=== PATIENT | male | born 1945 | race Caucasian/White ===

== ENCOUNTER 2016-06-28 13:42 | Observation (INO) | payer MEDICARE ==
[~2016-06-28] VITALS: Ht 180.3 cm; Wt 85.0 kg
[~2016-06-28 13:42] MED LIST: AMLO5TAB22 PO; BACT PO; LEVO50TA4 PO; LISI-366 PO; METF500 PO; RANI300T PO; SIMV20 PO; TAMS0.4C67 PO
[2016-06-28 14:18] VITALS: BP 130/87; PULSE 72; RESP 14; TEMP 98; O2SAT 95
[2016-06-28] MEDS ORDERED: SODIUM CHLOR 0.9% 1000 ML INJ 1,000 ML IV ONE (14:23)
[2016-06-28] MEDS ORDERED: SODIUM CHLORIDE 0.9% FLUSH 10 ML FLUSH IVF PRN (14:30)
[2016-06-28] MEDS ORDERED: SIMV20TA PO (14:35)
[2016-06-28] MEDS ORDERED: AMLO5TAB2 PO (14:35)
[2016-06-28] MEDS ORDERED: METF500T PO (14:35)
[2016-06-28] MEDS ORDERED: LISI40TA PO (14:35)
[2016-06-28] MEDS ORDERED: RANI300T PO (14:35)
[2016-06-28] MEDS ORDERED: TAMS5CAP PO (14:35)
--- NOTE | 2016-06-28 14:35 | PD ---
HPI Chief Complaint: Syncope/Near-Syncope Time Seen by Provider: 14:15 Travel History International Travel<30 days: No Contact w/Intl Traveler<30days: No Traveled to known affect area: No History of Present Illness HPI The patient is a 70 year-old male who presents to the emergency department after syncopal episode. The patient states he lives in [place], [place]. The patient's primary physician is Dr. Ibarra, in [place], [place]. 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 The patient states he felt dizzy, lightheaded, went to sit down on a bench, and then apparently had a syncopal episode and "slid off the bench ". He denies any trauma to the head, does note a positive loss of consciousness. The patient states he was dizzy and diaphoretic prior to the syncopal episode. He denied any chest pain, shortness of breath, nausea, vomiting, or palpitations. The patient states she was recently hospitalized 2 weeks ago at [facility] and was diagnosed with new onset atrial fibrillation. The patient thinks she had an echocardiogram performed at that time and was placed on new medications, however , does not know the names of his medications. The patient states he is going to be referred to a polystyrene bead molder, but has not seen a polystyrene bead molder as of yet. The patient currently complains of no symptoms except for mild sweating, however , does feel "drained". PFSH Past Medical History Cardiovascular Problems: Yes (HTN, a-fib) Diabetes: Yes Social History Tobacco Use: No Allergies-Medications (Allergen,Severity, Reaction): Coded Allergies: Cultivated Oat Pollen (Verified Adverse Reaction, Intermediate, 06/28/16) asthma attack Reported Meds & Prescriptions Reported Meds & Active Scripts Active Reported Metoprolol Tartrate 50 Mg Tab 50 Mg PO BID Flomax (Tamsulosin HCl) 0.4 Mg Cap 0.4 Mg PO HS Amlodipine (Amlodipine Besylate) 5 Mg Tab 5 Mg PO DAILY Metformin (Metformin HCl) 500 Mg Tab 500 Mg PO DAILY With a meal Lisinopril 40 Mg Tab 40 Mg PO DAILY Ranitidine (Ranitidine HCl) 300 Mg Tab 300 Mg PO DAILY Simvastatin 20 Mg Tab 20 Mg PO DAILY Review of Systems Except as stated in HPI: all other systems reviewed are Neg General / Constitutional: No: Fever HENT: Positive: Lightheadedness Cardiovascular: Positive: Irregular Rhythm (recently diagnosed with atrial fibrillation), Diaphoresis, Syncope, No: Chest Pain or Discomfort, Palpitations Respiratory: No: Shortness of Breath Gastrointestinal: No: Nausea, Vomiting, Abdominal Pain Musculoskeletal: Positive: Weakness Neurologic: Positive: Weakness, Dizziness, Syncope, No: Headache, Change in Mentation Physical Exam Narrative GENERAL: Awake, alert, pleasant 70-year-old male who appears his stated age is in no acute respiratory distress SKIN: Focused skin assessment warm and diaphoretic. HEAD: Atraumatic. Normocephalic. EYES: Pupils equal and round. No scleral icterus. No injection or drainage. ENT: No nasal bleeding or discharge. Mucous membranes pink and moist. NECK: Trachea midline. No JVD. CARDIOVASCULAR: Regular rate and rhythm. No murmur appreciated. Heart rate in the 80s. RESPIRATORY: No accessory muscle use. Clear to auscultation. Breath sounds equal bilaterally. GASTROINTESTINAL: Abdomen soft, non-tender, nondistended. No rebound tenderness. MUSCULOSKELETAL: No obvious deformities. No clubbing. No cyanosis. No edema. NEUROLOGICAL: Awake and alert. No obvious cranial nerve deficits. Motor grossly within normal limits. Normal speech. Nonfocal. Oriented 4. PSYCHIATRIC: Appropriate mood and affect; insight and judgment normal. Data Data Last Documented VS Vital Signs Date Time Temp Pulse Resp B/P Pulse Ox O2 Delivery O2 Flow Rate FiO2 06/28/16 15:40 70 17 151/78 95 Room Air 06/28/16 14:18 98.0 Orders Electrocardiogram (06/28/16 14:23) Complete Blood Count With Diff (06/28/16 14:23) Comprehensive Metabolic Panel (06/28/16 14:23) Magnesium (Mg) (06/28/16 14:23) Ckmb (Isoenzyme) Profile (06/28/16 14:23) Troponin I (06/28/16 14:23) Act Partial Throm Time (Ptt) (06/28/16 14:23) Prothrombin Time / Inr (Pt) (06/28/16 14:23) Chest, Single Ap (06/28/16 14:23) Ct Brain W/O Iv Contrast(Rout) (06/28/16 14:23) Ecg Monitoring (06/28/16 14:23) Iv Access Insert/Monitor (06/28/16 14:23) Oximetry (06/28/16 14:23) Sodium Chloride 0.9% Flush (Ns Flush) (06/28/16 14:30) Sodium Chlor 0.9% 1000 Ml Inj (Ns 1000 M (06/28/16 14:23) Orthostatic Vital Signs (06/28/16 14:23) Place In Observation (06/28/16 ) Code Status (06/28/16 16:42) Vital Signs (Adult) Q4H (06/28/16 16:42) Activity Oob With Assistance (06/28/16 16:42) Grounds Cleaner / Telemetry .CONTINUOUS (06/28/16 16:42) Sodium Chloride 0.9% Flush (Ns Flush) (06/28/16 16:45) Sodium Chloride 0.9% Flush (Ns Flush) (06/28/16 21:00) Acetaminophen (Tylenol) (06/28/16 16:45) Ondansetron Inj (Zofran Inj) (06/28/16 16:45) Magnesium Hydroxide Liq (Milk Of Magnesi (06/28/16 16:45) Temazepam (Restoril) (06/28/16 16:45) Basic Metabolic Panel (Bmp) (06/29/16 06:00) Complete Blood Count With Diff (06/29/16 06:00) Electrocardiogram (06/28/16 16:42) Pt Request For Service (06/28/16 16:42) Scd Bilateral/Knee High JOSE GUADALUPE.BID (06/28/16 16:42) Naloxone Inj (Narcan Inj) (06/28/16 16:45) Holter Monitor Recording (06/28/16 ) Thyroid Stimulating Hormone (06/28/16 16:44) Free Thyroxine (T4) (06/28/16 16:44) Rapid Plasma Regin (Rpr) W Ttr (06/28/16 16:44) Vitamin B12 (06/28/16 16:44) Folate, Serum (06/28/16 16:44) Ammonia (06/28/16 16:44) Us Carotid Arteries Comp Bilat (06/28/16 ) Echo 2d Comp W/Dopp(Routine) (06/28/16 ) Diet Diabetic (06/28/16 Dinner) Admit Order (Ed Use Only) (06/28/16 16:50) Labs Laboratory Tests Test 06/28/16 14:45 White Blood Count 6.4 TH/MM3 Red Blood Count 4.27 MIL/MM3 Hemoglobin 11.8 GM/DL Hematocrit 34.5 % Mean Corpuscular Volume 81.0 FL Mean Corpuscular Hemoglobin 27.7 PG Mean Corpuscular Hemoglobin 34.2 % Concent Red Cell Distribution Width 15.0 % Platelet Count 202 TH/MM3 Mean Platelet Volume 8.5 FL Neutrophils (%) (Auto) 79.5 % Lymphocytes (%) (Auto) 13.3 % Monocytes (%) (Auto) 5.8 % Eosinophils (%) (Auto) 1.0 % Basophils (%) (Auto) 0.4 % Neutrophils # (Auto) 5.1 TH/MM3 Lymphocytes # (Auto) 0.9 TH/MM3 Monocytes # (Auto) 0.4 TH/MM3 Eosinophils # (Auto) 0.1 TH/MM3 Basophils # (Auto) 0.0 TH/MM3 CBC Comment DIFF FINAL Differential Comment Prothrombin Time 11.1 SEC Prothromb Time International 1.0 RATIO Ratio Activated Partial 23.1 SEC Thromboplast Time Sodium Level 142 MEQ/L Potassium Level 4.0 MEQ/L Chloride Level 109 MEQ/L Carbon Dioxide Level 24.8 MEQ/L Anion Gap 8 MEQ/L Blood Urea Nitrogen 14 MG/DL Creatinine 1.07 MG/DL Estimat Glomerular Filtration 68 ML/MIN Rate Random Glucose 125 MG/DL Calcium Level 8.3 MG/DL Magnesium Level 2.2 MG/DL Total Bilirubin 0.3 MG/DL Aspartate Amino Transf 12 U/L (AST/SGOT) Alanine Aminotransferase 24 U/L (ALT/SGPT) Alkaline Phosphatase 55 U/L Total Creatine Kinase 24 U/L Troponin I LESS THAN 0.02 NG/ML Total Protein 6.3 GM/DL Albumin 3.8 GM/DL [facility] Medical Decision Making Medical Screen Exam Complete: Yes Emergency Medical Condition: Yes Medical Record Reviewed: Yes Interpretation(s) EKG reveals normal sinus rhythm with a heart rate of 66. First-degree AV block with CT interval of 224 ms. Laboratory Tests Test 06/28/16 14:45 White Blood Count 6.4 TH/MM3 Red Blood Count 4.27 MIL/MM3 Hemoglobin 11.8 GM/DL Hematocrit 34.5 % Mean Corpuscular Volume 81.0 FL Mean Corpuscular Hemoglobin 27.7 PG Mean Corpuscular Hemoglobin 34.2 % Concent Red Cell Distribution Width 15.0 % Platelet Count 202 TH/MM3 Mean Platelet Volume 8.5 FL Neutrophils (%) (Auto) 79.5 % Lymphocytes (%) (Auto) 13.3 % Monocytes (%) (Auto) 5.8 % Eosinophils (%) (Auto) 1.0 % Basophils (%) (Auto) 0.4 % Neutrophils # (Auto) 5.1 TH/MM3 Lymphocytes # (Auto) 0.9 TH/MM3 Monocytes # (Auto) 0.4 TH/MM3 Eosinophils # (Auto) 0.1 TH/MM3 Basophils # (Auto) 0.0 TH/MM3 CBC Comment DIFF FINAL Differential Comment Prothrombin Time 11.1 SEC Prothromb Time International 1.0 RATIO Ratio Activated Partial 23.1 SEC Thromboplast Time Sodium Level 142 MEQ/L Potassium Level 4.0 MEQ/L Chloride Level 109 MEQ/L Carbon Dioxide Level 24.8 MEQ/L Anion Gap 8 MEQ/L Blood Urea Nitrogen 14 MG/DL Creatinine 1.07 MG/DL Estimat Glomerular Filtration 68 ML/MIN Rate Random Glucose 125 MG/DL Calcium Level 8.3 MG/DL Magnesium Level 2.2 MG/DL Total Bilirubin 0.3 MG/DL Aspartate Amino Transf 12 U/L (AST/SGOT) Alanine Aminotransferase 24 U/L (ALT/SGPT) Alkaline Phosphatase 55 U/L Total Creatine Kinase 24 U/L Troponin I LESS THAN 0.02 NG/ML Total Protein 6.3 GM/DL Albumin 3.8 GM/DL CT of the brain is unremarkable. Differential Diagnosis Differential diagnosis includes vasovagal syncope, cardiogenic syncope, arrhythmia, aortic stenosis, carotid stenosis, intracranial hemorrhage, pulmonary embolism, electrolyte abnormality, heat exhaustion, heat stroke Narrative Course IV was established, labs are drawn and sent, and the patient was placed on cardiac telemetry monitoring and continuous pulse oximetry monitoring. EKG was ordered and interpreted. We will try to obtain records from [facility] in regards to the patient's workup including possible echocardiogram and/ or ultrasound of the carotids. Patient was administered IV fluids. Orthostatic vital signs were obtained. CT the brain was negative. Orthostatic vital signs are unremarkable. I reviewed the paperwork from [facility]. He had an EKG which revealed a rate of 156, it appeared to be possibly atrial flutter versus SVT. The patient had a syncopal episode earlier today, recent history of arrhythmia, patient needs 23 hour observation for telemetry monitoring and echocardiogram. The patient has [facility], therefore, the on-call [facility] physician was paged for admission. Physician Communication Physician Communication [facility] was paged for 23 hour observation. I discussed the patient with Dr. Pereyra who agrees with 23 hour observation. Diagnosis Primary Impression: Syncope Qualified Code: R55 - Syncope, unspecified syncope type Admitting Information Admitting Physician Requests: Observation Condition: Stable Jake Swanson MD Jun 28, 2016 14:34
[2016-06-28 14:36] VITALS: BP_SYST 117; BP_SYST 120; BP_SYST 133; BP_DIAS 61; BP_DIAS 70; BP_DIAS 72
[2016-06-28] MEDS ORDERED: METO50TA PO (14:41)
[2016-06-28 15:11] LABS: AUTOMATED NEUTROPHIL # 5.1 TH/MM3 (1.8-7.7); BASOPHIL % 0.4 % (0.0-2.0); EOSINOPHIL # 0.1 TH/MM3 (0-0.4); HEMATOCRIT 34.5 % (39.0-51.0); HEMO FLAGS DIFF FINAL; LYMPH % 13.3 % (9.0-44.0); LYMPHOCYTE # 0.9 TH/MM3 (1.0-4.8); MEAN CORPUSCULAR HEMOGLOBIN 27.7 PG (27.0-34.0); MEAN CORPUSCULAR HGB CONC 34.2 % (32.0-36.0); MONO % 5.8 % (0.0-8.0); NEUT % 79.5 % (16.0-70.0); PLATELET COUNT 202 TH/MM3 (150-450); RED BLOOD COUNT 4.27 MIL/MM3 (4.50-5.90); WHITE BLOOD COUNT 6.4 TH/MM3 (4.0-11.0)
[2016-06-28 15:33] LABS: APTT (PATIENT) 23.1 SEC (24.3-30.1); PROTHROMBIN TIME - PATIENT 11.1 SEC (9.8-11.6)
[2016-06-28 15:35] LABS: ALT (GPT) 24 U/L (12-78); ANION GAP 8 MEQ/L (5-15); AST (GOT) 12 U/L (15-37); BICARBONATE 24.8 MEQ/L (21.0-32.0); BLOOD UREA NITROGEN 14 MG/DL (7-18); CHLORIDE 109 MEQ/L (98-107); GLOMERULAR FILTRATION RATE 68 ML/MIN (>89); MAGNESIUM 2.2 MG/DL (1.5-2.5); SODIUM (NA) 142 MEQ/L (136-145)
[2016-06-28 15:39] LABS: ALKALINE PHOSPHATASE 55 U/L (45-117); TOTAL BILIRUBIN ADULT 0.3 MG/DL (0.2-1.0)
[2016-06-28 15:40] VITALS: BP 151/78; PULSE 70; RESP 17; O2SAT 95
[2016-06-28 16:02] LABS: CREATINE KINASE 24 U/L (39-308)
--- NOTE | 2016-06-28 16:20 | RADRPT ---
EXAM DATE/TIME: 06/28/2016 16:01 [facility] COMPARISON: No previous studies available for comparison. INDICATIONS : Syncope. RADIATION DOSE: 49.22 CTDIvol (mGy) MEDICAL HISTORY : Cardiovascular disease. Hypertension. Diabetes mellitus type 2. SURGICAL HISTORY : None. ENCOUNTER: Initial ACUITY: 1 day PAIN SCALE: 0/10 LOCATION: cranial TECHNIQUE: Multiple contiguous axial images were obtained of the head. Using automated exposure control and adj ustment of the mA and/or kV according to patient size, radiation dose was kept as low as reasonably a chievable to obtain optimal diagnostic quality images. FINDINGS: CEREBRUM: The ventricles are normal for age. No evidence of midline shift, mass lesion, hemorrhage or acute in farction. No extra-axial fluid collections are seen. POSTERIOR FOSSA: The cerebellum and brainstem are intact. The 4th ventricle is midline. The cerebellopontine angle i s unremarkable. EXTRACRANIAL: The visualized portion of the orbits is intact. SKULL: The calvaria is intact. No evidence of skull fracture. CONCLUSION: Negative for an acute process. Mehran Collier MD FACR on June 28, 2016 at 16:16 Board Certified Radiologist. This report was verified electronically.
[2016-06-28] MEDS ORDERED: ACETAMINOPHEN 325 MG TAB PO PRN (16:45)
[2016-06-28] MEDS ORDERED: MAGNESIUM HYDROXIDE SUSP 30 ML CUP PO PRN (16:45)
[2016-06-28] MEDS ORDERED: TEMAZEPAM 15 MG CAP PO PRN (16:45)
[2016-06-28] MEDS ORDERED: NALOXONE HCL 0.4 MG/ML AMP IV PRN (16:45)
[2016-06-28] MEDS ORDERED: SODIUM CHLORIDE 0.9% FLUSH 10 ML FLUSH IV FLUSH PRN (16:45)
[2016-06-28] MEDS ORDERED: ONDANSETRON HCL 4 MG/2 ML VIAL IVP PRN (16:45)
--- NOTE | 2016-06-28 16:46 | HHI.HP ---
HPI Service [facility] Hospitalists Primary Care Physician Ge Ibarra M.D. Admission Diagnosis Chief Complaint: syncope Travel History International Travel<30 Days: No Contact w/Intl Traveler <30 Da: No Traveled to Known Affected Are: No History of Present Illness Patient was seen in the ER at [facility] approximately 1 week ago for palpitations. Patient was started on metoprolol, but not admitted. Review of EKG from his stay in the ER shows possible atrial flutter. Today while at the [employer] patient had a syncopal episode. Patient became lightheaded and sat down. Patient then slid to the floor with loss of consciousness, But no head injury. Patient denies dizziness. Patient and his chest pain or palpitations. Patient denies shortness of breath, nausea, vomiting, or diaphoresis. Patient is admitted to [facility] for further evaluation and treatment Review of Systems Constitutional: DENIES: Diaphoretic episodes, Fatigue, Fever, Weight gain, Weight loss, Chills, Dizziness, Change in appetite, Night Sweats Endocrine: DENIES: Heat/cold intolerance, Polydipsia, Polyuria, Polyphagia Eyes: DENIES: Blurred vision, Diplopia, Eye inflammation, Eye pain, Vision loss , Photosensitivity, Double Vision Ears, nose, mouth, throat: DENIES: Tinnitus, Hearing loss, Vertigo, Nasal discharge, Oral lesions, Throat pain, Hoarseness, Ear Pain, Running Nose, Epistaxis, Sinus Pain, Toothache, Odynophagia Respiratory: DENIES: Apneas, Cough, Snoring, Wheezing, Hemoptysis, Sputum production, Shortness of breath Cardiovascular: COMPLAINS OF: Palpitations, Syncope, DENIES: Chest pain, Dyspnea on Exertion, PND, Lower Extremity Edema, Orthopnea, Claudication Gastrointestinal: DENIES: Abdominal pain, Black stools, Bloody stools, BRB per rectum, Constipation, Diarrhea, GERD, Nausea, Reflux, Vomiting, Difficulty Swallowing, Anorexia, See HPI Genitourinary: DENIES: Urinary incontinence, Urgency, Hematuria, Dysuria, Nocturia Musculoskeletal: DENIES: Joint pain, Muscle aches, Stiffness, Joint Swelling, Back pain, Neck pain Integumentary: DENIES: Abnormal pigmentation, Nail changes, Pruritus, Rash Hematologic/lymphatic: DENIES: Bruising, Lymphadenopathy Immunologic/allergic: DENIES: Eczema, Urticaria Neurologic: DENIES: Abnormal gait, Headache, Localized weakness, Paresthesias, Seizures, Speech Problems, Tremor, Poor Balance Psychiatric: DENIES: Anxiety, Confusion, Mood changes, Depression, Hallucinations, Agitation, Suicidal Ideation, Homicidal Ideation, Delusions, History of Bipolar, History of Schizophrenia Past Family Social History Past Medical History 1) palpitations - Seen at the [facility] ER approximately 1 week ago and started on beta spring 2) hypertension 3) hyperlipidemia 4) hiatal hernia with GERD 5) hypothyroidism 6) tobacco use 7) agent orange exposure 8) BPH 9) diabetes, type II Past Surgical History 1) septoplasty for deviated nasal septum 2) appendectomy 3) left inguinal hernia repair 4) colonoscopy Reported Medications Reported Meds & Active Scripts Active Reported Metoprolol Tartrate 50 Mg Tab 50 Mg PO BID Flomax (Tamsulosin HCl) 0.4 Mg Cap 0.4 Mg PO HS Amlodipine (Amlodipine Besylate) 5 Mg Tab 5 Mg PO DAILY Metformin (Metformin HCl) 500 Mg Tab 500 Mg PO DAILY With a meal Lisinopril 40 Mg Tab 40 Mg PO DAILY Ranitidine (Ranitidine HCl) 300 Mg Tab 300 Mg PO DAILY Simvastatin 20 Mg Tab 20 Mg PO DAILY Allergies: Coded Allergies: Cultivated Oat Pollen (Verified Adverse Reaction, Intermediate, 06/28/16) asthma attack Family History - Father secondary to black lung - Mother living with diabetes, breast cancer - Siblings with breast cancer Social History - Retired - - 5 daughters - Patient has smoked one pack per day for many years - 2-3 beers daily - No illicit street drugs Physical Exam Vital Signs Vital Signs Date Time Temp Pulse Resp B/P Pulse Ox O2 Delivery O2 Flow Rate FiO2 06/28/16 15:40 70 17 151/78 95 Room Air 06/28/16 14:36 66 120/61 71 117/70 80 133/72 06/28/16 14:18 98.0 72 14 130/87 95 Physical Exam GENERAL: This is a well-nourished, well-developed patient, in no apparent distress. SKIN: No rashes, ecchymoses or lesions. Cool and dry. HEAD: Atraumatic. Normocephalic. No temporal or scalp tenderness. EYES: Pupils equal round and reactive. Extraocular motions intact. No scleral icterus. No injection or drainage. ENT: Nose without bleeding, purulent drainage or septal hematoma. Throat without erythema, tonsillar hypertrophy or exudate. Uvula midline. Airway patent. NECK: Trachea midline. No JVD or lymphadenopathy. Supple, nontender, no meningeal signs. CARDIOVASCULAR: Regular rate and rhythm without murmurs, gallops, or rubs. RESPIRATORY: Clear to auscultation. Breath sounds equal bilaterally. No wheezes , rales, or rhonchi. GASTROINTESTINAL: Abdomen soft, non-tender, nondistended. No hepato-splenomegaly , or palpable masses. No guarding. MUSCULOSKELETAL: Extremities without clubbing, cyanosis, or edema. No joint tenderness, effusion, or edema noted. No calf tenderness. Negative Homans sign bilaterally. NEUROLOGICAL: Awake and alert. Cranial nerves II through XII intact. Motor and sensory grossly within normal limits. Five out of 5 muscle strength in all muscle groups. Normal speech. Laboratory Laboratory Tests Test 06/28/16 14:45 White Blood Count 6.4 Red Blood Count 4.27 Hemoglobin 11.8 Hematocrit 34.5 Mean Corpuscular Volume 81.0 Mean Corpuscular Hemoglobin 27.7 Mean Corpuscular Hemoglobin 34.2 Concent Red Cell Distribution Width 15.0 Platelet Count 202 Mean Platelet Volume 8.5 Neutrophils (%) (Auto) 79.5 Lymphocytes (%) (Auto) 13.3 Monocytes (%) (Auto) 5.8 Eosinophils (%) (Auto) 1.0 Basophils (%) (Auto) 0.4 Neutrophils # (Auto) 5.1 Lymphocytes # (Auto) 0.9 Monocytes # (Auto) 0.4 Eosinophils # (Auto) 0.1 Basophils # (Auto) 0.0 CBC Comment DIFF FINAL Differential Comment Prothrombin Time 11.1 Prothromb Time International 1.0 Ratio Activated Partial 23.1 Thromboplast Time Sodium Level 142 Potassium Level 4.0 Chloride Level 109 Carbon Dioxide Level 24.8 Anion Gap 8 Blood Urea Nitrogen 14 Creatinine 1.07 Estimat Glomerular Filtration 68 Rate Random Glucose 125 Calcium Level 8.3 Magnesium Level 2.2 Total Bilirubin 0.3 Aspartate Amino Transf 12 (AST/SGOT) Alanine Aminotransferase 24 (ALT/SGPT) Alkaline Phosphatase 55 Total Creatine Kinase 24 Troponin I LESS THAN 0.02 Total Protein 6.3 Albumin 3.8 Result Diagram: 06/28/16 1445 06/28/16 1445 Imaging Last Impressions Head CT 06/28/16 1423 Signed Impressions: Service Date/Time: Tuesday, June 28, 2016 16:01 - CONCLUSION: Negative for an acute process. Mehran Collier MD FACR Septic Shock Reassessment Heart: Regular rate and rhythm Lungs: Clear Skin: Warm Peripheral Pulses: Bounding Right Radial Bounding Left Radial Bounding Right Popliteal Bounding Left Popliteal Bounding Right Dorsalis Pedis Bounding Left Dorsalis Pedis Bounding Right Posterior Tibial Bounding Left Posterior Tibial Capillary Refill: Brisk Assessment and Plan Problem List: (1) Syncope Status: Acute Plan: - Observe on telemetry - Obtain Holter monitor - Obtain bilateral carotid ultrasound - Continue beta spring for now (2) HTN (hypertension) Status: Chronic Plan: - continue metoprolol, norvasc, lisinopril (3) BPH (benign prostatic hyperplasia) Status: Chronic Plan: (4) DM2 (diabetes mellitus, type 2) Status: Chronic Plan: - metformin Problem Qualifiers (1) Syncope: Qualified Code: R55 - Syncope, unspecified syncope type (2) HTN (hypertension): Qualified Code: I10 - Essential hypertension (3) DM2 (diabetes mellitus, type 2): Qualified Code: E11.8 - Type 2 diabetes mellitus with complication, unspecified buttermilk drier operator insulin use status Serge Pereyra DO Jun 28, 2016 16:46
[2016-06-28 17:00] VITALS: BP 136/71; PULSE 65; RESP 14; O2SAT 94
--- NOTE | 2016-06-28 17:09 | RADRPT ---
EXAM DATE/TIME: 06/28/2016 16:42 [facility] COMPARISON: No previous studies available for comparison. INDICATIONS : Syncopal episode today MEDICAL HISTORY : None. SURGICAL HISTORY : None. ENCOUNTER: Initial ACUITY: 1 day PAIN SCORE: 0/10 LOCATION: Bilateral chest FINDINGS: The cardiac silhouette is enlarged in transverse diameter. The lungs are free of acute parenchymal op acity. No effusions are identified. There is prominence of the aortic knob is with calcification rosalinda acteristic of atherosclerotic vascular disease. There is eventration of the right hemidiaphragm. CONCLUSION: 1. Cardiomegaly. No acute pulmonary disease. Arias Ly MD on June 28, 2016 at 17:06 Board Certified Radiologist. This report was verified electronically.
[2016-06-28] MEDS ORDERED: ENALAPRILAT 1.25 MG/ML VIAL IV PRN (17:15)
[2016-06-28] MEDS ORDERED: cloNIDine HCL 0.2 MG TAB PO PRN (17:15)
--- NOTE | 2016-06-28 18:51 | RADRPT ---
EXAM DATE/TIME: 06/28/2016 17:18 [facility] COMPARISON: No previous studies available for comparison. INDICATIONS : Syncope. MEDICAL HISTORY : Gastroesophageal reflux disease. Chronic obstructive pulmonary disease. Hypertension. Hyperlipidemia. Afib. Diabetes. Hypothyroidism. Herniated disks in lumbar spine. Syncope. SURGICAL HISTORY : Appendectomy. Nasal surgery. Hernia repair. Vasectomy. ENCOUNTER: Initial ACUITY: 1 day PAIN SCORE: 0/10 LOCATION: Bilateral neck PEAK SYSTOLIC VELOCITIES (cm/sec): ICA/CCA RATIO: Right: 1.5 Left: 2.0 ICA: Right: 105 Left: 124 CCA: Right: 70 Left: 63 ECA: Right: 132 Left: 113 VERTEBRAL: Right: 45 antegrade Left: 58 antegrade Elevated flow velocities and ICA/CCA ratios have been found to correlate with increased degrees of vessel stenosis, calculated as percentage of diameter relative to a normal segment of distal ICA/CCA FINDINGS: RIGHT CAROTID: Mild plaque is seen at the carotid bulb region. No significant stenosis is visualized. The waveforms are within normal limits. LEFT CAROTID: Mild plaque is seen at the carotid bulb region. No significant stenosis is visualized. The waveforms are within normal limits. VERTEBRAL ARTERIES: Antegrade flow is seen in both vertebral arteries. MISCELLANEOUS: None. CONCLUSION: Mild plaque is seen at the carotid bulb regions. The peak systolic velocities are normal. There is a mildly elevated ICA/CCA ratio on the left. Silvestre Weir MD on June 28, 2016 at 18:48 Board Certified Radiologist. This report was verified electronically.
[2016-06-28] MEDS ORDERED: TAMSULOSIN HCL 0.4 MG CAP PO SCH (21:00)
[2016-06-28] MEDS: METOPROLOL TARTRATE 50 MG TAB PO SCH (21:00)
[2016-06-28] MEDS: SODIUM CHLORIDE 0.9% FLUSH 10 ML FLUSH IV FLUSH SCH (21:00)
[2016-06-28] MEDS: INSULIN ASPART SUPPLEMENTAL SCALE SQ SCH (21:00)
[2016-06-28 21:09] VITALS: BP 159/73; PULSE 68; RESP 18; TEMP 97.9; O2SAT 97
[2016-06-28 21:19] VITALS: PULSE 66
[2016-06-29 00:21] VITALS: BP 178/80; PULSE 61; RESP 20; TEMP 98; O2SAT 96
[2016-06-29 04:00] VITALS: BP 132/63; PULSE 63; RESP 20; TEMP 98.1; O2SAT 97
[2016-06-29] MEDS: INSULIN ASPART SUPPLEMENTAL SCALE SQ SCH ×3 (06:12→16:00)
[2016-06-29 06:49] LABS: BICARBONATE 27.3 MEQ/L (21.0-32.0); POTASSIUM 3.9 MEQ/L (3.5-5.1)
[2016-06-29 06:56] LABS: AUTOMATED NEUTROPHIL # 3.5 TH/MM3 (1.8-7.7); BASOPHIL % 0.4 % (0.0-2.0); EOSINOPHIL # 0.1 TH/MM3 (0-0.4); EOSINOPHIL % 2.1 % (0.0-4.0); HEMATOCRIT 35.1 % (39.0-51.0); HEMO FLAGS DIFF FINAL; LYMPH % 28.6 % (9.0-44.0); LYMPHOCYTE # 1.6 TH/MM3 (1.0-4.8); MEAN CELL VOLUME 81.6 FL (80.0-100.0); MEAN CORPUSCULAR HEMOGLOBIN 27.3 PG (27.0-34.0); MEAN CORPUSCULAR HGB CONC 33.5 % (32.0-36.0); MONO % 7.2 % (0.0-8.0); NEUT % 61.7 % (16.0-70.0); PLATELET COUNT 197 TH/MM3 (150-450); RED CELL DISTRIBUTION WIDTH 15.3 % (11.6-17.2); WHITE BLOOD COUNT 5.6 TH/MM3 (4.0-11.0)
[2016-06-29 08:03] VITALS: BP 152/72; PULSE 72; RESP 18; TEMP 98.2; O2SAT 96
[2016-06-29] MEDS ORDERED: metFORMIN HCL 500 MG TAB PO SCH (09:00)
[2016-06-29] MEDS ORDERED: amLODIPine BESYLATE 5 MG TAB PO SCH (09:00)
[2016-06-29] MEDS ORDERED: FAMOTIDINE 20 MG TAB PO SCH (09:00)
[2016-06-29] MEDS ORDERED: PRAVASTATIN SOD 40 MG TAB PO SCH (09:00)
[2016-06-29] MEDS ORDERED: LISINOPRIL 20 MG TAB PO SCH (09:00)
[2016-06-29] MEDS: METOPROLOL TARTRATE 50 MG TAB PO SCH (10:39)
[2016-06-29] MEDS: SODIUM CHLORIDE 0.9% FLUSH 10 ML FLUSH IV FLUSH SCH (10:39)
[2016-06-29 12:23] VITALS: BP 160/70; PULSE 60; RESP 18; TEMP 97.8; O2SAT 95
[2016-06-29 16:42] VITALS: BP 140/73; PULSE 65; RESP 18; O2SAT 95
--- NOTE | 2016-06-29 17:08 | HHI.PR ---
Subjective Remarks No further syncope. Pt ambulated with PT without difficulties. Pt has been ambulating to the BR. Objective Vitals Vital Signs Date Time Temp Pulse Resp B/P Pulse Ox O2 Delivery O2 Flow Rate FiO2 06/29/16 16:42 65 18 140/73 95 06/29/16 12:23 97.8 60 18 160/70 95 06/29/16 08:03 98.2 72 18 152/72 96 06/29/16 04:00 98.1 63 20 132/63 97 06/29/16 00:21 98.0 61 20 178/80 96 06/28/16 21:19 66 06/28/16 21:09 97.9 68 18 159/73 97 Result Diagram: 06/29/16 0510 06/29/16 0510 Imaging Last Impressions Head CT 06/28/16 1423 Signed Impressions: Service Date/Time: Tuesday, June 28, 2016 16:01 - CONCLUSION: Negative for an acute process. Mehran Collier MD FACR Objective Remarks GENERAL: This is a well-nourished, well-developed patient, in no apparent distress. CARDIOVASCULAR: Regular rate and rhythm without murmurs, gallops, or rubs. RESPIRATORY: Clear to auscultation. Breath sounds equal bilaterally. No wheezes , rales, or rhonchi. GASTROINTESTINAL: Abdomen soft, non-tender, nondistended. Normal active bowel sounds MUSCULOSKELETAL: Extremities without clubbing, cyanosis, or edema. NEURO: Alert & Oriented x4 to person, place, time, situation. Moves all ext x4 A/P Problem List: (1) Syncope Status: Acute Plan: - telemetry --> NSR - Holter monitor --> may complete at home & return device to [place] - bilateral carotid ultrasound (06/28/16) --> NO hemodynamically significant stenosis - b12, folate, TSH --> WNL - Continue metoprolol - NO driving until f/u with Cardiology - Pt has appointment to see Dr. House, Cardiology, 07/04/16 (2) HTN (hypertension) Status: Chronic Plan: - continue metoprolol, norvasc, lisinopril (3) BPH (benign prostatic hyperplasia) Status: Chronic Plan: (4) DM2 (diabetes mellitus, type 2) Status: Chronic Plan: - metformin Problem Qualifiers (1) Syncope: Qualified Code: R55 - Syncope, unspecified syncope type (2) HTN (hypertension): Qualified Code: I10 - Essential hypertension Serge Pereyra DO Jun 29, 2016 17:08
[2016-06-29 17:37] VITALS: PULSE 58
--- NOTE | 2016-06-29 19:19 | EKG ---
Date Performed: 06/28/2016 Time Performed: 18:52:20 PTAGE: 70 years EKG: Sinus rhythm WITH FIRST DEGREE AV BLOCK POSSIBLE RIGHT VENTRICULAR CONDUCTION DELAY ABNORMAL ECG PREVIOUS TRACING : 06/28/2016 14.29 Compared to prior tracing no significant change DOCTOR: Pritesh Willis Interpretating Date/Time 06/29/2016 19:17:33
--- NOTE | 2016-06-29 19:27 | EKG ---
Date Performed: 06/28/2016 Time Performed: 14:29:58 PTAGE: 70 years EKG: Sinus rhythm WITH FIRST DEGREE AV BLOCK ABNORMAL ECG PREVIOUS TRACING : 08/18/2003 15.31 Compared to prior tracing no significant change DOCTOR: Pritesh Willis Interpretating Date/Time 06/29/2016 19:25:59
--- NOTE | 2016-06-29 20:01 | EC ---
Study Study Date:06/29/2016 STUDY CONCLUSIONS SUMMARY - Left ventricle: The cavity size was normal. Wall thickness was normal. Systolic function was normal. The estimated ejection fraction was in the range of 55% to 60%. Wall motion was normal; there were no regional wall motion abnormalities. - Mitral valve: Mild regurgitation. - Tricuspid valve: Mild regurgitation. - Pulmonary arteries: PA peak pressure: 35mm Hg (S). If LV function is below 40, please consider prescribing an ACEI or ARB or document rationale for non-use. PROCEDURE DATA STUDY STATUS: Elective. Procedure: Transthoracic echocardiography. Image quality was good. Scanning was performed from the parasternal, apical, and subcostal acoustic windows. Study completion: The patient tolerated the procedure well. Transthoracic echocardiography. M-mode, complete 2D, complete spectral Doppler, and color Doppler. Patient status: Inpatient. CARDIAC ANATOMY LEFT VENTRICLE: The cavity size was normal. Wall thickness was normal. Systolic function was normal. The estimated ejection fraction was in the range of 55% to 60%. Wall motion was normal; there were no regional wall motion abnormalities. AORTIC VALVE: Trileaflet; normal thickness leaflets. Doppler: Transvalvular velocity was within the normal range. There was no stenosis. No regurgitation. AORTA: Aortic root: The aortic root was normal in size. MITRAL VALVE: Structurally normal valve. Doppler: Transvalvular velocity was within the normal range. There was no evidence for stenosis. Mild regurgitation. LEFT ATRIUM: The atrium was normal in size. RIGHT VENTRICLE: The cavity size was normal. Wall thickness was normal. PULMONIC VALVE: Doppler: Transvalvular velocity was within the normal range. There was no evidence for stenosis. No regurgitation. TRICUSPID VALVE: Structurally normal valve. Doppler: Transvalvular velocity was within the normal range. Mild regurgitation. PULMONARY ARTERY: The main pulmonary artery was normal-sized. Systolic pressure was within the normal range. RIGHT ATRIUM: The atrium was normal in size. PERICARDIUM: There was no pericardial effusion. SYSTEMIC VEINS: Inferior vena cava: The vessel was normal in size. BASIC MEASUREMENTS ADULT NORMAL Left ventricle LV internal dimension, ED, chordal level, 45.6 mm 43-52 PLAX LV internal dimension, ES, chordal level, 34.5 mm 23-38 PLAX Fractional shortening, chordal level, PLAX *24 % >29 LV posterior wall thickness, ED 12.9 mm IVS/LVPW ratio, ED 1.27 <1.3 Ventricular septum Septal thickness, ED 16.4 mm Aortic valve Leaflet separation 25 mm 15-26 Right ventricle RV internal dimension, ED, PLAX 31.4 mm 19-38 BASIC MEASUREMENTS ADULT NORMAL Aortic valve Leaflet separation 25 mm 15-26 Aorta Root diameter, ED *46 mm 20-37 Left atrium Anterior-posterior dimension, ES 35 mm 19-40 LA/aortic root ratio 0.76 DOPPLER MEASUREMENTS ADULT NORMAL Main pulmonary artery Pressure, S *35 mm Hg =30 Tricuspid valve Regurgitant peak velocity 250 cm/s Peak RV-RA gradient, S 25 mm Hg Maximal regurgitant velocity 250 cm/s Systemic veins Estimated CVP 10 mm Hg Right ventricle RV pressure, S *35 mm Hg <30 LEGEND: Mean values are shown as u=mean value. Asterisk (*) lorenzo values outside specified normal range. Prepared and signed by Jimmie Castillo [id number]
[2016-07-01 09:30] LABS: RAPID PLASMA REAGIN SCREEN NON-REACTIVE (NON-REACTVE)
--- NOTE | 2016-07-04 17:47 | HM ---
Date Performed: 06/28/2016 Time Performed: 20:06:00 HOOKUP DATE: 06/28/16 08:06:00 PM Fri ANALYSIS START TIME: 06/28/2016 8:11:00 PM ANALYSIS END TIME: 06/29/2016 8:14:59 PM PATIENT AGE: 70 PATIENT HEIGHT PATIENT WEIGHT DRUG LIST PATIENT DIAGNOSIS TEST NARRATIVE: The patient's average heart rate was 67 BPM. No episodes of tachycardia wer e noted. No episodes of bradycardia were noted. No pauses exceeding 2.0 seconds were noted. 2 ventricular ectopics, which represented < 1% of the total beat count, were noted. The highest vent ricular ectopic frequency occurred from 07:00 AM to 08:00 AM Sat. During this time 1 VE(s) occurred. Ventricular ectopics were observed as 2 isolated beat(s) only. No couplets or runs were noted. 1 supraventricular ectopics, which represented < 1% of the total beat count, were noted. The highes t supraventricular ectopic frequency occurred from 08:00 PM to 09:00 PM Fri. During this time 1 SVE( s) occurred. No episodes of ST depression (defined as -1.0 mm or more) were noted in channel 1. No episodes of ST depression (defined as -1.0 mm or more) were noted in channel 2. No episodes of ST depression (defined as -1.0 mm or more) were noted in channel 3. TEST INTERPRETATION: No symptoms recorded in patient notebook. Conclusion is normal holter monit or. Signed by : Arias Proctor
== END 2016-06-29 17:55 | disposition home or self-care (01) ==
LOC: NEPC 13:42 → NEDA 16:53 → NEPFCDU 20:03
PROVIDERS: ADMIT Hospitalist; ATTEND Hospitalist
DX: R55 Syncope and collapse (principal); I44.0 Atrioventricular block, first degree; I48.91 Unspecified atrial fibrillation; I10 Essential (primary) hypertension; N40.0 Benign prostatic hyperplasia without lower urinary tract symptoms; K21.9 Gastro-esophageal reflux disease without esophagitis; K44.9 Diaphragmatic hernia without obstruction or gangrene; E11.9 Type 2 diabetes mellitus without complications; Z72.0 Tobacco use; E78.5 Hyperlipidemia, unspecified; Z79.84 Long term (current) use of oral hypoglycemic drugs; Z79.899 Other long term (current) drug therapy
CPT/HCPCS: 70450; 71010; 80048; 80053; 82140; 82550; 82607; 82746; 82948; 83735; 84439; 84443; 84484; 85025; 85610; 85730; 86592; 93005; 93225; 93226; 93306; 93880; 97161; 99285; G0378; G8987; G8988; J1815; J7030

== ENCOUNTER 2016-10-01 06:19 | Day surgery (SDC) | payer MEDICARE ==
[2016-10-01] VITALS (10 sets, daily range): BP systolic 143–159; BP diastolic 72–88; PULSE 76–102; RESP 16; TEMP 97.8–98.2; O2SAT 94–97
[~2016-10-01] VITALS: Ht 175.3 cm; Wt 79.0 kg
[~2016-10-01 06:19] MED LIST changes: +AMLO5TAB2 PO; -AMLO5TAB22 PO; -BACT PO; -LEVO50TA4 PO; -LISI-366 PO; +LISI40TA PO; -METF500 PO; +METF500T PO; +METO50TA PO; -SIMV20 PO; +SIMV20TA PO; -TAMS0.4C67 PO; +TAMS5CAP PO
[2016-10-01] MEDS ORDERED: PRED1 PO (06:52)
[2016-10-01] MEDS ORDERED: LEVO75TA3 PO (06:52)
[2016-10-01] MEDS ORDERED: INSULIN HUMAN REGULAR 1,000 UNITS/10 ML VIAL SQ PRN (07:00)
[2016-10-01] MEDS ORDERED: LORazepam 1 MG TAB SL SCH (07:00)
[2016-10-01] MEDS ORDERED: POVIDONE IODINE 5% (ANTISEPSIS KIT) 4 APPLICATIONS EACH NARE PRN (07:00)
[2016-10-01] MEDS ORDERED: METOPROLOL TARTRATE 25 MG TAB PO PRN (07:00)
[2016-10-01] MEDS ORDERED: SODIUM CHLORID 0.9% 500 ML IV PRN (07:00)
[2016-10-01] MEDS ORDERED: SODIUM CHLORID 0.9% 500 ML INJ 500 ML IV SCH (07:00)
[2016-10-01] MEDS ORDERED: CHLORHEXIDINE GLUCONATE 2 % 1 PACK (2 CLOTHS) TOPICAL PRN (07:00)
[2016-10-01] MEDS ORDERED: LACTATED RINGER'S 1000 ML IV PRN (07:00)
[2016-10-01 07:23] LABS: AUTOMATED NEUTROPHIL # 3.8 TH/MM3 (1.8-7.7); BASOPHIL % 0.6 % (0.0-2.0); EOSINOPHIL # 0.1 TH/MM3 (0-0.4); HEMATOCRIT 35.9 % (39.0-51.0); HEMO FLAGS DIFF FINAL; LYMPHOCYTE # 1.9 TH/MM3 (1.0-4.8); MEAN CELL VOLUME 82.5 FL (80.0-100.0); MEAN CORPUSCULAR HEMOGLOBIN 28.7 PG (27.0-34.0); MEAN CORPUSCULAR HGB CONC 34.8 % (32.0-36.0); MONO % 5.4 % (0.0-8.0); PLATELET COUNT 267 TH/MM3 (150-450); RED BLOOD COUNT 4.35 MIL/MM3 (4.50-5.90); RED CELL DISTRIBUTION WIDTH 16.5 % (11.6-17.2); WHITE BLOOD COUNT 6.1 TH/MM3 (4.0-11.0)
[2016-10-01 07:29] LABS: APTT (PATIENT) 24.8 SEC (24.3-30.1); PROTHROMBIN TIME - PATIENT 10.7 SEC (9.8-11.6)
[2016-10-01 07:42] LABS: BICARBONATE 25.3 MEQ/L (21.0-32.0); POTASSIUM 3.4 MEQ/L (3.5-5.1)
[2016-10-01] MEDS ORDERED: MIDAZOLAM HCL 2 MG/2 ML VIAL ONE (10:07)
[2016-10-01] MEDS ORDERED: ISOPROTERENOL HCL 1 MG/5 ML AMP ONE (10:29)
--- NOTE | 2016-10-01 11:30 | CATHPROC ---
[facility]et HIS Report Study Information Study Number Admission Scheduled Start Study Start [id number] Oct 01 2016 6:19AM 10/01/2016 Oct 01 2016 10:06AM [place] [facility] Electrophysiology Study Admit Source Facility Department Other [facility] - Medical Technologist Prn Physician and Clinical Staff Initial Viola Hess Pattern Maker Nia Phan,RT(R) TECH2 Pattern Maker Marylou Carrillo RCIS TECH2 Other Anesthesia, EXECUTIVE CHEF ASSISTANT Other Sara Rubio,HAL Recorder Maggi Alexis BSRN Scrub Urban Peterson,RT(R) Procedures Performed Procedure Location (Site) Vessel Name RF Ablation Isthmus Other Equipment Time Automatic Thread Winder Description Size Mfg Part Number Used/Scraped BIOSENSE CORNEJO CATHETER, CELSIUS, 4MM, D [id number] 10:54 FR 7 Used INC. TYPE QUAD *[id number] 10:16 [employer] PACK, CCL CUSTOM * Used *[id number] 10:16 [employer] PACER GUY, LIMB * 2530 *[id number] Used [id number] 10:16 [facility] BLANKET,WARM AIR CCL * Used *[id number] 10:20 [employer] MEDICAL CATHETER, JSN, QUAD FR 5 Used *[id number] 124020 10:20 [employer] MEDICAL CATHETER, JSN, QUAD FR 5 Used *[id number] 10:20 [employer] MEDICAL CATHETER, JSN, QUAD FR 5 Used *[id number] 506136 10:20 [employer] MEDICAL CATHETER, JSN, QUAD FR 5 Used *[id number] 10:16 [employer] MEDICAL ELECTRODE KIT, RANDOLPH X SURFACE * [id number] Used [id number] 10:19 [employer] MEDICAL SHEATH, EPS, FR5 FAST CATH FR 5 Used *[id number] [id number] 10:19 [employer] MEDICAL SHEATH, EPS, FR5 FAST CATH FR 5 Used *[id number] 421927 10:19 [employer] MEDICAL SHEATH, EPS, FR5 FAST CATH FR 5 Used *[id number] 10:20 [employer] MEDICAL SHEATH, EPS, FR6 FAST CATH FR 6 [id number] Used 10:20 [facility] [employer] MEDICAL SHEATH, EPS, FR8 FAST CATH FR 8 [id number] Used [facility] PAD, ELECTROSURGICAL 10:16 * [id number] *[id number] Used SURGICAL GROUNDING (BLUE) History: Current Medications Medication Dosage/Unit Route Frequency Last Date/Time Taken Beta Lily Statins (any) History: Allergies Allergy Reaction NKDA History: Risk Factors Family History of Hypertension Dyslipidemia Previous AR Previous Heart Failure Premature CAD Yes Yes No No No Prior Valve Prior PCI Prior CABG Surgery No No No Cerebrovascular Peripheral Artery Chronic Lung On Dialysis Diabetes Diabetes Therapy Disease Disease Disease No No No No Yes Oral History: Risk Factors Selection Items Diabetes History: Symptoms/Diagnosis Selection Items Syncope History: Other Disease Selection Items HTN Labs Hgb (g/dl) Hct (%) RBC (MIL/MM3) WBC (l/cumm) Platelets (thousands) 11.60-17.00 35.00-51.00 4.00-5.90 4.00-11.00 150.00-450.00 12.5 35.9 4.3 6.1 267 Glucose (mg/dl) BUN (mg/dl) Creatinine (mg/dl) BUN:Creatinine (1:x) 74.00-106.00 7.00-18.00 0.50-1.30 10.00-20.00 138 13 0.8 16.3 Na (meq/l) K (meq/l) Cl (meq/l) CO2 (mmol/L) 136.00-145.00 3.50-5.10 98.00-107.00 21.00-32.00 142 3.4 106 25.3 INR (PTT:PT) 0.90-1.10 1 Medication Medication Total Dose (Bolus/Oral) Medication Total Dosage/Unit 1% XYLOCAINE 40 mL Medications (Bolus/Oral) Medication Time Given Dosage/Unit Administered By Reason 1% XYLOCAINE 10/01/2016 10:43:59 AM 20 mL Viola Villarreal For pain 20 mL 1% XYLOCAINE given in lab by Viola Villarreal in Left Groin via Subcutaneous. Ordered by Eitan Villarreal. Reason: For pain. 1% XYLOCAINE 10/01/2016 10:45:50 AM 20 mL Viola iVllarreal For pain 20 mL 1% XYLOCAINE given in lab by Viola Villarreal in Right Groin via Subcutaneous. Ordered by Jasper Villarreal. Reason: For pain. Medication (Drip) Medication Time Given Dosage/Unit Concentration/Unit Diluent (ml) Solution ISUPREL 10/01/2016 11:07:10 AM 4 mcg/min 1 mg 250 NaCl .9 4 mcg/min ISUPREL given in lab by Anesthesia, EXECUTIVE CHEF ASSISTANT via Peripheral IV. Pump/Drip Flow = 60 ml/hr using NaCl .9 with a concentration of 1 mg in 250 ml. Ordered by Viola Villarreal. IV Solutions 10/01/2016 10:18:03 AM 0 mL (IV) NaCl .9 IV Solutions given in lab by Anesthesia, EXECUTIVE CHEF ASSISTANT in Right Antecubital via Peripheral IV. Pump/Drip Flow = 50 ml/hr using NaCl .9. Ordered by Viola Villarreal. Reason: As per physicians verbal order. IV Solutions 10/01/2016 10:18:37 AM 0 mL (IV) NaCl .9 IV Solutions given in lab by Anesthesia, EXECUTIVE CHEF ASSISTANT in Left Antecubital via Peripheral IV. Pump/Drip Flow = 50 ml/hr using NaCl .9. Ordered by Viola Villarreal. Initial Case Assessment Cardiovascular HR NIBP 70 178/90 Edema Present Skin color Skin None Normal Warm Dry Neurological State Oriented to time-place- Alert Moves all extremities person Respiration - General Respiration Rate SpO2 (%) (B/min) 18 97 Final Case Assessment Cardiovascular HR Rhythm NIBP Chest Pain 77 SR 104/56 0 Edema Present Skin color Skin None Normal Warm Dry Circulatory - Right Pulses Dorsalis Pedis 1 Scale (0,1,2,3,4,d) Circulatory - Left Pulses Dorsalis Pedis 1 Scale (0,1,2,3,4,d) Neurological State Oriented to time-place- Alert Moves all extremities person Respiration - General Respiration Rate SpO2 (%) O2 (lpm) (B/min) 18 97 2 Chronological Log Time Study Chronological Log 10:07:00 Patient arrived via Bed. 10:10:25 Patient Name, D.O.B, / Armband Verified By R.N. 10:10:27 Consent signed by the physician and the patient and verified by the Medical Technologist Prn staff. 10:10:36 Pre-op and post- op instructions given; patient acknowledges understanding of instructions. 10:10:45 Anesthesia at bedside. Assumes care of patient. Gabriel RAMIREZ 10:10:53 Patient has been NPO for More than 6Hrs. 10:10:56 Skin Breakdown- none 10:16:27 Patient Warmer Placed on the Table. 10:16:32 Disposable Defibrillator Pads Placed On Patient. 10:16:38 Naresh Prominences Protected 10:16:43 A # 20 IV was noted in the Antecubital (left). Grade = ~GRADE~ 10:16:55 A # 20 IV was noted in the Antecubital (right). Grade = ~GRADE~ Assessment: Initial Case, HR=70 BPM, OCGY=596/90 mmhg, Edema=None, Color=Normal, Skin = Warm, D ry 10:17:07 Neurological: State=Alert, Ox3, MOHR Respiration: Resp=18 B/min, SpO2=97 % 10:17:54 Table restraints applied according to hospital policy IV Solutions given in lab by Anesthesia, EXECUTIVE CHEF ASSISTANT in Right Antecubital via Peripheral IV. Pump/Drip Flow = 50 ml/hr using 10:18:03 NaCl .9. Ordered by Viola Villarreal. Reason: As per physicians verbal order. IV Solutions given in lab by Anesthesia, EXECUTIVE CHEF ASSISTANT in Left Antecubital via Peripheral IV. Pump/Drip Flow = 50 ml/hr using 10:18:37 NaCl .9. Ordered by Viola Villarreal. 10:20:15 Right groin prepped with 2% chlorhexidine, and with a 3 min. waiting time. 10:20:19 Left groin prepped with 2% chlorhexidine, and with a 3 min. waiting time. 10:28:31 Reference ECG taken 10:30:15 MD paged 10:30:18 MD responded. 10:31:06 Verbal Stimulation=2 Physical Stimulation=2 Airway=2 Respiration=2 TOTAL=10. (0=absent, 1=l imited, 2=present) 10:39:19 MD arrived. 10:43:17 Immediate Presedation assesment performed by physician. Time Out. Correct patient, procedure, procedure equipment, site and side verified with physicia n present. Time 10:43:20 concurred by MD, individual staff and EXECUTIVE CHEF ASSISTANT. Time Out #2 - Consents verified, patient in correct position, all results are labled and displa yed, safety precautions 10:43:31 taken, antibiotics administered. Time out concurred by MD, individual staff and EXECUTIVE CHEF ASSISTANT in procedu re 10:43:33 Case Start 20 mL 1% XYLOCAINE given in lab by Viola Villarreal in Left Groin via Subcutaneous. Ordered by Viola Colvin. 10:43:59 Reason: For pain. 10:44:26 Vascular access was obtained in the Fem Vein (left). 10:44:32 Vascular access was obtained in the Fem Vein (left). 10:44:33 Vascular access was obtained in the Fem Vein (left). 10:44:45 A SHEATH, EPS, FR5 FAST CATH FR 5 was advanced into the Antecubital (left) using the Percut aneous technique. 10:44:59 A SHEATH, EPS, FR5 FAST CATH FR 5 was advanced into the Antecubital (left) using the Percut aneous technique. 10:45:00 A SHEATH, EPS, FR5 FAST CATH FR 5 was advanced into the Antecubital (left) using the Percut aneous technique. 20 mL 1% XYLOCAINE given in lab by Viola Villarreal in Right Groin via Subcutaneous. Ordered by Viola Bentley. 10:45:50 Reason: For pain. 10:46:04 Vascular access was obtained in the Fem Vein (right). 10:46:10 Vascular access was obtained in the Fem Vein (right). 10:46:12 A SHEATH, EPS, FR6 FAST CATH FR 6 was advanced into the Fem Vein (right) using the Percutan eous technique. 10:46:19 A SHEATH, EPS, FR8 FAST CATH FR 8 was advanced into the Fem Vein (right) using the Percutan eous technique. A CATHETER, JSN, QUAD FR 5 was advanced vis Fem Vein (left) and placed in the HIS. Placement wa s visually 10:47:19 confirmed under fluoroscopy. A CATHETER, JSN, QUAD FR 5 was advanced vis Fem Vein (left) and placed in the HRA. Placement wa s visually 10:47:43 confirmed under fluoroscopy. A CATHETER, JSN, QUAD FR 5 was advanced vis Fem Vein (left) and placed in the RVA. Placement w as visually 10:48:01 confirmed under fluoroscopy. A CATHETER, JSN, QUAD FR 5 was advanced vis Fem Vein (right) and placed in the CS. Placement w as visually 10:48:29 confirmed under fluoroscopy. 10:51:12 EP study in progress. A CATHETER, CELSIUS, 4MM, D TYPE QUAD FR 7 was advanced vis Fem Vein (right) and placed in the Isthmus. 10:54:34 Placement was visually confirmed under fluoroscopy. 10:54:50 RF Ablation of the Isthmus with a CATHETER, DEVEN, 4MM, D TYPE QUAD FR 7. 10:55:28 Ablation in progress. 11:04:36 EP study in progress 4 mcg/min ISUPREL given in lab by Anesthesia, EXECUTIVE CHEF ASSISTANT via Peripheral IV. Pump/Drip Flow = 60 ml/h r using NaCl .9 with 11:07:10 a concentration of 1 mg in 250 ml. Ordered by Viola Villarreal. 11:12:40 D/C ISUPREL 11:24:39 Catheter(s) removed without difficulty 11:24:51 Case End 11:27:44 Sterile dressing applied to site 11:27:45 No case complications noted. 11:27:47 Sheath(s) left in place, will be removed in Holding Area 11:27:49 Cine recording checked. 11:27:50 Bedside Report will be given. 11:27:53 CIC called. Spoke to JULEE 11:28:03 Defibrillator and ground pads removed. Skin intact. 11:28:04 [facility]: Final Case, HR=77 BPM, Rhythm=SR, XMQT=297/56 mmhg, Chest Pain=0, Edema=None, [place] r=Normal, Skin = Warm, Dry Right Pulses: Breezy Ped=1 11:29:09 Left Pulses: Breezy Ped=1 Neurological: State=Alert, Ox3, MOHR Respiration: Resp=18 B/min, SpO2=97 %, O2=2 lpm End Study - Contrast Media Used In Study Contrast Total Opened (mL) Total Used (mL) Total Wasted (mL) Unspecified 0 0 0 End Study - Maximum Contrast Load Max Contrast Load (mL) 507.4 End Study - Radiation Exposure Fluoro Time (minutes) 3.3 End Study - Patient Disposition Complications Transferred To Interventional Outcome No Telemetry Bed successful
[2016-10-01] MEDS ORDERED: LORazepam 2 MG/ML VIAL IV PRN (11:45)
[2016-10-01] MEDS ORDERED: METOCLOPRAMIDE HCL 10 MG/2 ML VIAL IV PRN (11:45)
[2016-10-01] MEDS ORDERED: SODIUM CHLOR 0.9% 250 ML INJ 250 ML IV PRN (11:45)
[2016-10-01] MEDS ORDERED: LIDOCAINE HCL 1% 50 ML VIAL INFIL PRN (11:45)
[2016-10-01] MEDS ORDERED: ATROPINE SULFATE 1 MG/ML VIAL IV PRN (11:45)
--- NOTE | 2016-10-01 13:00 | MA ---
cc: VANNA PAT M.D. DATE: 10/01/2016 TYPE OF PROCEDURES: Electrophysiology study, CS cannulation, 3-D mapping radiofrequency ablation of AV marley reentrant tachycardia, repeat echo physiology study on Isuprel infusion. PROCEDURE: Mr. Delacruz 71-year-old gentleman supraventricular tachyarrhythmia. Multiple hospitalization, referred for electrophysiology study and ablation. The risks, the nature and the benefit of the procedure are clearly stated to him. The risks include pneumothorax, cardiac perforation, stroke, need for open heart surgery and even . The patient understood and agreed to proceed. PROCEDURE After written informed consent was obtained, the patient was brought to the EP lab where he was prepped and draped in the usual sterile fashion. Conscious sedation was initiated and C and maintained throughout the procedure by anesthesiologist. Once sedation verified, the right and left inguinal area was anesthetized with 2% Xylocaine. Using modified Seldinger technique, the left femoral vein was done on three occasions, three guide wires were advanced over the wire, three 5-[place] Hemaquet were advanced. Then the right femoral vein was cannulated on two occasions two guidewire were advanced over the wires, a 6 and 8-[place] Hemaquet were advanced. Then under fluoroscopic guidance through the 5-[place] Hemaquet, four, 5-[place] Sakshi curved quadripolar electrophysiology catheters were advanced on the HIS, upper right atrium, coronary sinus and right ventricular apex. Basic interval was measured all within normal limits. At this point atrial pacing protocol was performed, atrial pacing protocol consists of incremental atrial pacing as well as program stimulation with 410 cycle length and up to one excess stimuli delivered during atrial pacing protocol supraventricular tachyarrhythmia of intracardiac characteristic of AV marley reentrant tachycardia was induced. VA time was 48 and it was terminated. Then ventricular pacing protocol was performed. There was VA conduction it was concentric. VA conduction was at 650 milliseconds. Then through the 8 [place] Hemaquet, a Cordis Mckeon D curve 4 mm mapping and radiofrequency ablation catheter was advanced. Using [employer] endocardial solution mapping system a three-dimensional a three-dimensional configuration of the right atrium was obtained. Then the catheter was placed at the tricuspid valve annulus. When they begin a small trifurcate A observed radiofrequency energy was delivered. Multiple junctional beat observed. Further burn was delivered in the area. Then atrial pacing protocol was performed. Wenckebach was around 530 milliseconds. No tachyarrhythmia was induced. Previous to that the Wenckebach was reached at 410 milliseconds. Then ventricular pacing protocol was performed. There is VA conduction. No tachyarrhythmia was induced. Isuprel infusion was initiated, atrial and ventricular pacing protocol was repeated again. No tachyarrhythmia was induced post Isuprel I did induce some kind of irregular arrhythmia, possible pulmonary vein tachyarrhythmia. We will be observed for now. At that point all catheters were removed. The patient tolerated procedure. No incident report. CONCLUSION 1. Electrocardiogram at baseline the patient was in sinus postprocedure electrocardiogram was unchanged. 2. Basic interval base cycle length was 820 milliseconds AH at a 100 HV at 66 milliseconds. 3. Atrial pacing protocol Wenckebach of the node at baseline was 410 milliseconds, post ablation it was 525, at 30 milliseconds. During atrial pacing protocol tachyarrhythmia was induced. 4. Ventricular pacing protocol there was VA conduction it was concentric. No tachyarrhythmia was induced. 5. Tachyarrhythmia supraventricular tachyarrhythmia of intracardiac characteristic of AV marley reentrant tachycardia was induced, it was pace terminated. Post ablation. No tachyarrhythmia was induced. Given the Isuprel infusion and at the peak of Isuprel infusion some episode of short burst of tachyarrhythmia was irregular. Possible pulmonary vein tachyarrhythmia. CONCLUSION Suspected physiology study, mapping, radiofrequency ablation of AV marley reentrant tachycardia. COMMENT/RECOMMENDATIONS The patient going to be transferred to the telemetry unit will be observed. observed. Monitor will be requested. There is a possibility of possible pulmonary vein tachyarrhythmia. But it was very short. MD ALEXYS Torres/thomas /11:42 AM /12:56 PM
[2016-10-01] MEDS ORDERED: BACITRACIN OINT 0.9 GM PKT TOP ONE (14:00)
[2016-10-01] MEDS ORDERED: ONDANSETRON HCL 4 MG/2 ML VIAL IV PRN (14:00)
[2016-10-01] MEDS ORDERED: oxyCODONE/ACETAMINOPHEN 5 MG/325 MG TAB PO PRN ×2 (14:00)
[2016-10-01] MEDS ORDERED: PROPOFOL 200 MG/20 ML AMP IV ONE (15:08)
[2016-10-01] MEDS ORDERED: TAMSULOSIN HCL 0.4 MG CAP PO SCH (21:00)
[2016-10-01] MEDS: METOPROLOL TARTRATE 50 MG TAB PO SCH (21:21)
[2016-10-01] MEDS: FAMOTIDINE 20 MG TAB PO SCH (21:21)
[2016-10-02] VITALS (8 sets, daily range): BP systolic 122–164; BP diastolic 65–92; PULSE 71–97; RESP 16–18; TEMP 98.6; O2SAT 93–94
[2016-10-02] MEDS ORDERED: LEVOTHYROXINE SODIUM 75 MCG TAB PO SCH (06:00)
--- NOTE | 2016-10-02 07:51 | PD.CARD.PN ---
Subjective Subjective Remarks Feels okay. Objective Medications Current Medications Medications (Trade) Dose Ordered Sig/Alfonzo Route Start Time Stop Time Status Last Admin Sodium Chloride 500 ml @ 30 mls/hr [id number] IV 10/01/16 07:00 10/01/16 07:00 Lactated Ringer's 1,000 ml @ 30 mls/hr Q24H PRN IV 10/01/16 07:00 10/04/16 06:59 (NS 500 ml Inj) 500 ml @ 30 mls/hr [id number] PRN IV 10/01/16 07:00 10/04/16 06:59 (Percocet 5-325 Mg) 1 tab Q4H PRN PO 10/01/16 14:00 (Percocet 5-325 Mg) 2 tab Q4H PRN PO 10/01/16 14:00 (Ativan Inj) 0.5 mg UNSCH PRN IV 10/01/16 11:45 10/02/16 11:44 Atropine Sulfate 0.5 mg 0.5 mg UNSCH PRN IV 10/01/16 11:45 (NS 250 ml Inj) 250 ml @ 500 mls/hr ONCE PRN IV 10/01/16 11:45 10/02/16 11:44 (Reglan Inj) 10 mg Q4H PRN IV 10/01/16 11:45 UNV (Zofran Inj) 4 mg Q4H PRN IV 10/01/16 14:00 10/03/16 13:59 (Xylocaine 1% Inj (50 ml)) 10 ml UNSCH PRN INFIL 10/01/16 11:45 10/02/16 11:44 (Norvasc) 5 mg DAILY PO 10/02/16 09:00 (Synthroid) 75 mcg DAILY@06 PO 10/02/16 06:00 10/02/16 05:38 (Glucophage) 500 mg DAILY PO 10/02/16 09:00 (Lopressor) 50 mg BID PO 10/01/16 21:00 10/01/16 21:21 (Deltasone) 1 mg DAILY PO 10/02/16 09:00 (Flomax) 0.4 mg HS PO 10/01/16 21:00 10/01/16 21:21 (Prinivil) 40 mg DAILY PO 10/02/16 09:00 (Pepcid) 20 mg BID PO 10/01/16 21:00 10/01/16 21:21 (Pravachol) 40 mg DAILY PO 10/02/16 09:00 Vital Signs / I&O Vital Signs Date Time Temp Pulse Resp B/P Pulse Ox O2 Delivery O2 Flow Rate FiO2 10/02/16 06:00 81 10/02/16 05:00 77 10/02/16 04:00 76 16 161/90 93 10/02/16 04:00 75 10/02/16 03:00 81 10/02/16 02:00 81 10/02/16 01:00 81 10/02/16 00:00 71 16 122/65 94 10/02/16 00:00 78 10/01/16 23:00 80 10/01/16 22:00 82 10/01/16 21:00 86 10/01/16 20:00 98.2 91 16 159/82 94 10/01/16 20:00 91 10/01/16 19:00 98 10/01/16 18:00 102 10/01/16 17:00 100 10/01/16 16:00 88 10/01/16 15:00 86 10/01/16 15:00 97.8 82 16 143/72 95 I/O 10/01/16 10/01/16 10/01/16 10/02/16 10/02/16 10/02/16 07:00 15:00 23:00 07:00 15:00 23:00 Intake Total 600 ml 240 ml Output Total 675 ml Balance 600 ml -435 ml Intake Oral 480 ml 240 ml IV Total 120 ml Output Urine Total 675 ml # Voids 2 Physical Exam GENERAL: Well-nourished, well-developed patient. SKIN: Warm and dry. Groin sites soft without bruising or bleeding. HEAD: Normocephalic. EYES: No scleral icterus. No injection or drainage. NECK: Supple, trachea midline. No JVD or lymphadenopathy. CARDIOVASCULAR: Regular rate and rhythm without murmurs, gallops, or rubs. RESPIRATORY: Breath sounds equal bilaterally. No accessory muscle use. GASTROINTESTINAL: Abdomen soft, non-tender, nondistended. EXTREMITIES: No cyanosis, or edema. NEUROLOGICAL: Awake, alert, and oriented x 3. Non-focal. Assessment and Plan Problem List: (1) AVNRT (AV marley re-entry tachycardia) Assessment and Plan: No recurrent tachycardia overnight. Continue current medications. (2) S/P ablation of accessory bypass tract Assessment and Plan: Stable status post AVNRT ablation. Groin sites soft, benign. Discharge home, follow-up with Dr. Villarreal in 3 weeks per my discussion with him. Karla Hart Oct 02, 2016 07:51
[2016-10-02] MEDS: FAMOTIDINE 20 MG TAB PO SCH (08:56)
[2016-10-02] MEDS: METOPROLOL TARTRATE 50 MG TAB PO SCH (08:56)
[2016-10-02] MEDS ORDERED: metFORMIN HCL 500 MG TAB PO SCH (09:00)
[2016-10-02] MEDS ORDERED: PRAVASTATIN SOD 40 MG TAB PO SCH (09:00)
[2016-10-02] MEDS ORDERED: LISINOPRIL 20 MG TAB PO SCH (09:00)
[2016-10-02] MEDS ORDERED: predniSONE 1 MG TAB PO SCH (09:00)
[2016-10-02] MEDS ORDERED: amLODIPine BESYLATE 5 MG TAB PO SCH (09:00)
--- NOTE | 2016-10-02 09:04 | EKG ---
Date Performed: 10/02/2016 Time Performed: 05:34:08 PTAGE: 71 years EKG: wandering pacemaker atrial rhythm Possible inferior infarct - age undetermined Abnormal ECG PREVIOUS TRACING : 10/01/2016 12.41 DOCTOR: Steve Rider Interpretating Date/Time 10/02/2016 09:02:38
--- NOTE | 2016-10-02 11:39 | EKG ---
Date Performed: 10/01/2016 Time Performed: 12:41:04 PTAGE: 71 years EKG: Sinus rhythm . Possible inferior infarct - age undetermined Abnormal ECG PREVIOUS TRACING : 06/28/2016 18.52 DOCTOR: Steve Rider Interpretating Date/Time 10/02/2016 11:38:58
--- NOTE | 2016-10-02 11:52 | EKG ---
Date Performed: 10/01/2016 Time Performed: 07:06:02 PTAGE: 71 years EKG: Sinus rhythm with PAC(s) with borderline 1st degree A-V block. Borderline ECG NO PREVIOUS TRACING DOCTOR: Steve Rider Interpretating Date/Time 10/02/2016 11:50:48
== END 2016-10-02 09:17 | disposition home or self-care (01) ==
LOC: HDOC 06:19 → HDIC 06:20 → HCIS 11:56 → HDOC 10-02 09:17
PROVIDERS: ATTEND Internal Medicine Interventional Cardiology
DX: I47.1 Supraventricular tachycardia (principal); E11.9 Type 2 diabetes mellitus without complications; E78.5 Hyperlipidemia, unspecified; R55 Syncope and collapse; R94.31 Abnormal electrocardiogram [ECG] [EKG]; Z01.810 Encounter for preprocedural cardiovascular examination; Z01.818 Encounter for other preprocedural examination
CPT/HCPCS: 80048; 85025; 85610; 85730; 86850; 86900; 86901; 93005; 93613; 93623; 93653; C1730; C1732; C2630; J2250; J3010; J7040; J7512

== ENCOUNTER 2016-10-09 08:54 | Emergency (ER) | payer MEDICARE ==
[~2016-10-09] VITALS: Ht 180.3 cm; Wt 76.0 kg
[~2016-10-09 08:54] MED LIST changes: +LEVO75TA3 PO; +PRED1 PO
[2016-10-09 09:01] VITALS: BP 123/58; PULSE 73; RESP 17; TEMP 97.8; O2SAT 98
[2016-10-09 09:09] VITALS: RESP 17; O2SAT 98
[2016-10-09 09:10] VITALS: BP_SYST 120; BP_SYST 122; BP_DIAS 55; BP_DIAS 58; BP_DIAS 59; RESP 17
--- NOTE | 2016-10-09 09:13 | PD ---
HPI Chief Complaint: Syncope/Near-Syncope Time Seen by Provider: 09:07 Travel History International Travel<30 days: No Contact w/Intl Traveler<30days: No Traveled to known affect area: No History of Present Illness HPI 71-year-old male arrives by EMS due to a syncope episode. He was at the [facility] surgery [place] where his is going to undergo surgery when he lost consciousness and fell to the ground. He woke up right away. EMS reports on scene the blood pressure was normal although he was quite diaphoretic. The patient denies chest pain shortness of breath. He reports feeling very sleepy throughout the morning as if he needed to go to sleep. This sensation of the urge to sleep became increasingly severe especially in the 30 minutes just prior to loss of consciousness. He reports a history of SVT several times previously and underwent cardiac ablation by Dr. Villarreal several days prior. He notes he took all his medications in the morning including Lipitor, ranitidine, Norvasc, lisinopril, metformin, metoprolol and tramadol. Since starting this particular regimen he has felt increasingly fatigued. PFSH Past Medical History Atrial Fibrillation: Yes Blood Disorders: No Heart Rhythm Problems: Yes Cancer: No Cardiovascular Problems: Yes High Cholesterol: Yes Chemotherapy: No Chest Pain: No Congestive Heart Failure: No Diabetes: Yes Endocrine: Yes Genitourinary: Yes (Prostate) Herniated Disk: Yes (2 lumbar area) Hypertension: Yes Immune Disorder: No Musculoskeletal: No Neurologic: No Psychiatric: No Reproductive: No Respiratory: No Radiation Therapy: No Thyroid Disease: Yes Past Surgical History Abdominal Surgery: Yes (hernia repair) Appendectomy: Yes Body Medical Devices: Hernia mesh. Other Surgery: Yes (nasal surgery) Social History Alcohol Use: Yes ([facility] beer) Tobacco Use: Yes Substance Use: No Allergies-Medications (Allergen,Severity, Reaction): Coded Allergies: Cultivated Oat Pollen (Verified Adverse Reaction, Intermediate, 10/01/16) asthma attack Reported Meds & Prescriptions Reported Meds & Active Scripts Active Reported Prednisone 1 Mg Tab 1 Mg PO DAILY Levothyroxine (Levothyroxine Sodium) 75 Mcg Tab 75 Mcg PO DAILY Metoprolol Tartrate 50 Mg Tab 50 Mg PO BID Flomax (Tamsulosin HCl) 0.4 Mg Cap 0.4 Mg PO HS Amlodipine (Amlodipine Besylate) 5 Mg Tab 5 Mg PO DAILY Metformin (Metformin HCl) 500 Mg Tab 500 Mg PO DAILY With a meal Lisinopril 40 Mg Tab 40 Mg PO DAILY Ranitidine (Ranitidine HCl) 300 Mg Tab 300 Mg PO DAILY Simvastatin 20 Mg Tab 20 Mg PO DAILY Review of Systems Except as stated in HPI: all other systems reviewed are Neg Physical Exam Narrative GENERAL: 71-year-old male well-nourished well-developed no acute distress SKIN: Warm and dry. HEAD: Atraumatic. Normocephalic. EYES: Pupils equal and round. No scleral icterus. No injection or drainage. ENT: No nasal bleeding or discharge. Mucous membranes pink and moist. NECK: Trachea midline. No JVD. CARDIOVASCULAR: Regular rate and rhythm. RESPIRATORY: No accessory muscle use. Clear to auscultation. Breath sounds equal bilaterally. GASTROINTESTINAL: Abdomen soft, non-tender, nondistended. Hepatic and splenic margins not palpable. MUSCULOSKELETAL: Extremities without clubbing, cyanosis, or edema. No obvious deformities. NEUROLOGICAL: Awake and alert. No obvious cranial nerve deficits. Motor grossly within normal limits. Five out of 5 muscle strength in the arms and legs. Normal speech. PSYCHIATRIC: Appropriate mood and affect; insight and judgment normal. Data Data Last Documented VS Vital Signs Date Time Temp Pulse Resp B/P Pulse Ox O2 Delivery O2 Flow Rate FiO2 10/09/16 10:15 97.8 76 17 118/67 99 10/09/16 09:09 Room Air Vital signs reviewed Orders Electrocardiogram (10/09/16 09:07) Basic Metabolic Panel (Bmp) (10/09/16 09:07) Complete Blood Count With Diff (10/09/16 09:07) Magnesium (Mg) (10/09/16 09:07) Ecg Monitoring (10/09/16 09:07) Iv Access Insert/Monitor (10/09/16 09:07) Oximetry (10/09/16 09:07) Sodium Chloride 0.9% Flush (Ns Flush) (10/09/16 09:15) Orthostatic Vital Signs (10/09/16 09:07) Labs Laboratory Tests Test 10/09/16 09:10 White Blood Count 8.6 TH/MM3 Red Blood Count 4.20 MIL/MM3 Hemoglobin 12.0 GM/DL Hematocrit 34.9 % Mean Corpuscular Volume 83.0 FL Mean Corpuscular Hemoglobin 28.4 PG Mean Corpuscular Hemoglobin 34.3 % Concent Red Cell Distribution Width 16.4 % Platelet Count 255 TH/MM3 Mean Platelet Volume 7.3 FL Neutrophils (%) (Auto) 76.1 % Lymphocytes (%) (Auto) 17.0 % Monocytes (%) (Auto) 5.9 % Eosinophils (%) (Auto) 0.6 % Basophils (%) (Auto) 0.4 % Neutrophils # (Auto) 6.5 TH/MM3 Lymphocytes # (Auto) 1.5 TH/MM3 Monocytes # (Auto) 0.5 TH/MM3 Eosinophils # (Auto) 0.1 TH/MM3 Basophils # (Auto) 0.0 TH/MM3 CBC Comment DIFF FINAL Differential Comment Sodium Level 141 MEQ/L Potassium Level 3.4 MEQ/L Chloride Level 107 MEQ/L Carbon Dioxide Level 28.9 MEQ/L Anion Gap 5 MEQ/L Blood Urea Nitrogen 10 MG/DL Creatinine 0.89 MG/DL Estimat Glomerular Filtration 84 ML/MIN Rate Random Glucose 137 MG/DL Calcium Level 8.3 MG/DL Magnesium Level 2.2 MG/DL MDM Medical Decision Making Medical Screen Exam Complete: Yes Emergency Medical Condition: Yes Medical Record Reviewed: Yes Differential Diagnosis Anemia, electron imbalance, arrhythmia, renal failure, dehydration, polypharmacy Narrative Course CBC & BMP Diagram 10/09/16 09:10 EKG reveals sinus rhythm with first-degree AV block rate 73 normal axis The patient is resting comfortably and feels better, is alert and in no distress. The patients results and examination findings were discussed. The repeat examination is unremarkable and benign. The history, exam, diagnostic testing, and current condition do not suggest any significant pathology to warrant further testing, continued ED treatment, admission, or surgical evaluation at this point. The vital signs have been stable. The patient does not have uncontrollable pain, intractable vomiting, or other significant symptoms. The patient's condition is stable and appropriate for discharge. The patient will pursue further outpatient evaluation with a primary care physician or other designated or consulting physician as indicated in the discharge instructions. The patient expressed understanding and was agreeable with this plan. Diagnosis Primary Impression: Syncope Qualified Code: R55 - Syncope, unspecified syncope type Referrals: [facility] 2 days Primary Care Physician 2 days Additional Instructions: PLEASE FOLLOW UP WITH PRIMARY DOCTOR AND WITH [employer]ING [employer] TO POTENTIALLY CHANGE MEDICATIONS AND/OR CHANGE DOSING. Med/Other Pt SpecificInfo: No Change to Meds Disposition: 01 DISCHARGE HOME Condition: Giancarlo Harvey MD Oct 09, 2016 09:13
[2016-10-09] MEDS ORDERED: SODIUM CHLORIDE 0.9% FLUSH 10 ML FLUSH IVF PRN (09:15)
[2016-10-09 09:26] LABS: AUTOMATED NEUTROPHIL # 6.5 TH/MM3 (1.8-7.7); BASOPHIL % 0.4 % (0.0-2.0); EOSINOPHIL # 0.1 TH/MM3 (0-0.4); EOSINOPHIL % 0.6 % (0.0-4.0); HEMATOCRIT 34.9 % (39.0-51.0); HEMO FLAGS DIFF FINAL; LYMPHOCYTE # 1.5 TH/MM3 (1.0-4.8); MEAN CORPUSCULAR HEMOGLOBIN 28.4 PG (27.0-34.0); MEAN CORPUSCULAR HGB CONC 34.3 % (32.0-36.0); MONO % 5.9 % (0.0-8.0); NEUT % 76.1 % (16.0-70.0); PLATELET COUNT 255 TH/MM3 (150-450); RED CELL DISTRIBUTION WIDTH 16.4 % (11.6-17.2); WHITE BLOOD COUNT 8.6 TH/MM3 (4.0-11.0)
[2016-10-09 09:44] LABS: BICARBONATE 28.9 MEQ/L (21.0-32.0); MAGNESIUM 2.2 MG/DL (1.5-2.5); POTASSIUM 3.4 MEQ/L (3.5-5.1)
[2016-10-09 10:15] VITALS: BP 118/67; TEMP 97.8
--- NOTE | 2016-10-10 08:10 | EKG ---
Date Performed: 10/09/2016 Time Performed: 09:05:21 PTAGE: 71 years EKG: Sinus rhythm WITH FIRST DEGREE AV BLOCK POSSIBLE RIGHT VENTRICULAR CONDUCTION DELAY ABNORMAL ECG NO PREVIOUS TRACING DOCTOR: Jimmie Castillo Interpretating Date/Time 10/10/2016 08:05:35
[2016-11-13] MEDS ORDERED: TRAM50TA PO (13:47)
[2016-11-13] MEDS ORDERED: AMIO200T PO (13:47)
[2016-11-13] MEDS ORDERED: PRED10 PO (13:48)
[2016-11-13] MEDS ORDERED: AUGM875T3 PO (13:48)
[2016-11-13] MEDS ORDERED: TAMS5CAP PO (14:22)
== END 2016-10-09 10:05 | disposition home or self-care (01) ==
LOC: NEPC 08:54
DX: R55 Syncope and collapse (principal); E11.9 Type 2 diabetes mellitus without complications; E78.00 Pure hypercholesterolemia, unspecified; I10 Essential (primary) hypertension; I47.1 Supraventricular tachycardia; I48.91 Unspecified atrial fibrillation
CPT/HCPCS: 80048; 83735; 85025; 93005; 99284

== ENCOUNTER 2016-12-10 06:13 | Day surgery (SDC) | payer MEDICARE ==
[2016-12-10] VITALS (7 sets, daily range): BP systolic 139–157; BP diastolic 73–84; PULSE 82–92; RESP 16–18; TEMP 97.8–98.1; O2SAT 93–97
[~2016-12-10] VITALS: Ht 177.8 cm; Wt 83.5 kg
[~2016-12-10 06:13] MED LIST changes: +AMIO200T PO; +AUGM875T3 PO; -METO50TA PO; -PRED1 PO; +PRED10 PO; +TRAM50TA PO
[2016-12-10] MEDS ORDERED: INSULIN HUMAN REGULAR 1,000 UNITS/10 ML VIAL SQ PRN (06:45)
[2016-12-10] MEDS ORDERED: POVIDONE IODINE 5% (ANTISEPSIS KIT) 4 APPLICATIONS EACH NARE PRN (06:45)
[2016-12-10] MEDS ORDERED: METOPROLOL TARTRATE 25 MG TAB PO PRN (06:45)
[2016-12-10] MEDS ORDERED: SODIUM CHLORID 0.9% 500 ML INJ 500 ML IV SCH (06:45)
[2016-12-10] MEDS ORDERED: CHLORHEXIDINE GLUCONATE 2 % 1 PACK (2 CLOTHS) TOPICAL PRN (06:45)
[2016-12-10] MEDS ORDERED: LORazepam 1 MG TAB SL SCH (06:45)
[2016-12-10] MEDS ORDERED: LACTATED RINGER'S 1000 ML IV PRN (06:45)
[2016-12-10] MEDS ORDERED: SODIUM CHLORID 0.9% 500 ML IV PRN (06:45)
[2016-12-10 06:58] LABS: AUTOMATED NEUTROPHIL # 3.3 TH/MM3 (1.8-7.7); BASOPHIL % 0.6 % (0.0-2.0); EOSINOPHIL # 0.1 TH/MM3 (0-0.4); EOSINOPHIL % 2.7 % (0.0-4.0); HEMATOCRIT 37.1 % (39.0-51.0); HEMO FLAGS DIFF FINAL; LYMPH % 29.4 % (9.0-44.0); LYMPHOCYTE # 1.6 TH/MM3 (1.0-4.8); MEAN CELL VOLUME 83.3 FL (80.0-100.0); MEAN CORPUSCULAR HEMOGLOBIN 28.3 PG (27.0-34.0); MEAN CORPUSCULAR HGB CONC 33.9 % (32.0-36.0); MONO % 5.7 % (0.0-8.0); NEUT % 61.6 % (16.0-70.0); PLATELET COUNT 226 TH/MM3 (150-450); RED BLOOD COUNT 4.46 MIL/MM3 (4.50-5.90); WHITE BLOOD COUNT 5.4 TH/MM3 (4.0-11.0)
[2016-12-10 07:07] LABS: APTT (PATIENT) 26.6 SEC (24.3-30.1); PROTHROMBIN TIME - PATIENT 10.7 SEC (9.8-11.6)
[2016-12-10] MEDS ORDERED: APIX5TAB PO (07:13)
[2016-12-10 07:15] LABS: BICARBONATE 26.1 MEQ/L (21.0-32.0); POTASSIUM 3.4 MEQ/L (3.5-5.1)
[2016-12-10] MEDS ORDERED: HEPARIN-NS/PF INJ 2,000 ML ONE (07:39)
[2016-12-10] MEDS ORDERED: HEPARIN-D5W 25,000 U/250 ML 250 ML ONE (07:55)
[2016-12-10] MEDS ORDERED: PROTAMINE SULFATE 50 MG/5 ML VIAL ONE (07:55)
[2016-12-10] MEDS ORDERED: ISOPROTERENOL HCL 1 MG/5 ML AMP ONE (07:55)
[2016-12-10] MEDS ORDERED: HEPARIN SODIUM - IV 10,000 UNITS/10 ML VIAL ONE (07:56)
[2016-12-10] MEDS ORDERED: LEVOFLOXACIN 500 MG PREMIX INJ 100 ML IV ONE (07:57)
--- NOTE | 2016-12-10 10:38 | CATHPROC ---
Introhive HIS Report Study Information Study Number Admission Scheduled Start Study Start [id number] Dec 10 2016 6:13AM 12/10/2016 Dec 10 2016 7:42AM [place] Service Electrophysiology Study Admit Source Facility Department Other [facility] - Coal Handling Supervisor Physician and Clinical Staff Initial Viola Hess Pump Mechanic Urban Peterson,RT(R) Pump Mechanic Adrienne Watson,HACKSAW INSPECTOR Other Anesthesia, TIMBER TREATMENT PLANT OPERATOR Recorder Cate Marshall,RN Recorder Tamra Gay,HAL Scrub Sarah García,FOREST OFFICER TECH2 Procedures Performed Procedure Location (Site) Vessel Name Ablation Procedure ICE CATHETER INSERT RA Atruim RF Ablation LT. ATRIUM LT. ATRIUM Equipment Time Customs House Broker Description Size Mfg Part Number Used/Scraped TRANSDUCER, TRUWAVE [id number] 08:06 CORONA HIGGINS * Used W/MELYCOCK *[id number] NEEDLE, TRANSSEPTAL NRG 98 09:15 [facility] [id number] Used C1 [employer]/ EP 09:15 KIT, TRANSDUCER / AFIB [id number] Used PACER [id number] 09:15 BUNDLE-[facility] CATHETER, JSN, QUAD BUNDLE FR 5 *[id number] Used BUNDLE [id number] 09:15 BUNDLE-[facility] MARCEL CATHETER, JSN, QUAD BUNDLE FR 5 *[id number] Used BUNDLE SHEATH, FR8.5 STEERABLE SM 09:15 BUNDLE-[facility]. MARCEL 71CM [id number] Used 71CM BUNDLE COVER, TRANSDUCER CABLE 08:06 [employer]E [employer]ENTS [id number] Used ACUNAV 08:06 CORDIS/PACER SHEATH, FR10 CHELLY 11CM FR 10 [id number] Used 10:23 CORDIS/PACER SHEATH, FR9 CHELLY 11CM FR 9 [id number] Used [id number] 08:06 MEDLINE INDUSTRIES PACK, CCL CUSTOM * Used *[id number] 08:06 MEDLINE PACER GUY, LIMB * 2530 *[id number] Used 09:15 MEDLINE PACER GUY, LIMB * 2530 *[id number] Used [id number] 08:06 Bioptigen MEDICAL SHEATH, FR4.5 PRELUDE 11CM FR 4.5 Used [id number] 08:06 NAMIC MANIFOLD, 4 PORT * Used *[id number] 09:15 NAMIC TUBING, HIGH PRESSURE 48" 48" Used *[id number] 08:06 NAMIC TUBING, HIGH PRESSURE 48" 48" Used *[id number] 09:38 NAMIC TUBING, HIGH PRESSURE 48" 48" Used *[id number] 09:38 NYCOMED OMNIPAQUE, 350 MG, 50ML 50ML [id number] Used [id number] 09:15 MA MEDICAL BLANKET,WARM AIR CCL * Used *[id number] CATHETER, TACTICATH ABLAT [id number] 09:19 [facility] MEDICAL Used 65 *[id number] 09:06 [facility] MEDICAL CATHETER, FR7 OPTIMA SPIRAL FR7 99243 *[id number] Used [id number] 08:06 [facility] MEDICAL CATHETER, JSN, QUAD FR 5 Used *[id number] 920409 08:06 [facility] MEDICAL CATHETER, JSN, QUAD FR 5 Used *[id number] 08:06 [facility] MEDICAL ELECTRODE KIT, RANDOLPH X SURFACE * [id number] Used [id number] 09:15 [facility] MEDICAL SHEATH, EPS, FR6 FAST CATH FR 6 Used *[id number] 747824 08:06 [facility] MEDICAL SHEATH, EPS, FR6 FAST CATH FR 6 Used *[id number] 08:06 [facility] M[facility]EL MEDICAL SHEATH, EPS, FR7 FAST CATH FR 7 [id number] Used [id number] 08:06 [facility] MEDICAL SHEATH, EPS, FR8 FAST CATH FR 8 Used *[id number] SHEATH, FR8.5 STEERABLE SM 09:14 [facility] MEDICAL 71CM [id number] Used 71CM CATHETER, ACUNAV FR10 ICE [id number] 08:58 KAZ FR 10 Used (KAZ) *[id number] [facility] PAD, ELECTROSURGICAL 09:15 * [id number] *[id number] Used SURGICAL GROUNDING (BLUE) History: Allergies Allergy Reaction Cultivated Oat Pollen grass pollen ciprofloxacin Nausea/Vomiting History: Risk Factors Hypertension Dyslipidemia Yes Yes Chronic Lung Diabetes Disease Labs Hgb (g/dl) Hct (%) RBC (MIL/MM3) WBC (l/cumm) Platelets (thousands) 11.60-17.00 35.00-51.00 4.00-5.90 4.00-11.00 150.00-450.00 12.0 37 4.5 5.4 226 Glucose (mg/dl) BUN (mg/dl) Creatinine (mg/dl) BUN:Creatinine (1:x) 74.00-106.00 7.00-18.00 0.50-1.30 10.00-20.00 119 13 0.8 16.3 Na (meq/l) K (meq/l) 136.00-145.00 3.50-5.10 141 3.4 INR (PTT:PT) 0.90-1.10 1 Medication Medication Total Dose (Bolus/Oral) Medication Total Dosage/Unit 1% XYLOCAINE 40 mL HEPARIN 79197 units PROTAMINE 40 mg Medications (Bolus/Oral) Medication Time Given Dosage/Unit Administered By Reason 1% XYLOCAINE 12/10/2016 8:51:02 AM 20 mL Viola Villarreal 20 mL 1% XYLOCAINE given in lab by Viola Villarreal in Left Groin via Subcutaneous. 1% XYLOCAINE 12/10/2016 8:54:55 AM 20 mL Viola Villarreal 20 mL 1% XYLOCAINE given in lab by Viola Villarreal in Right Groin via Subcutaneous. HEPARIN 12/10/2016 9:01:50 AM 8000 units Anesthesia, TIMBER TREATMENT PLANT OPERATOR As per physicians v erbal order 8000 units HEPARIN given in lab by Anesthesia, TIMBER TREATMENT PLANT OPERATOR via Peripheral IV. Ordered by Viola Villarreal. Reas on: As per physicians verbal order. HEPARIN 12/10/2016 9:20:26 AM 2000 units Anesthesia, TIMBER TREATMENT PLANT OPERATOR As per physicians v erbal order 2000 units HEPARIN given in lab by Anesthesia, TIMBER TREATMENT PLANT OPERATOR via Peripheral IV. Ordered by Viola Villarreal. Reas on: As per physicians verbal order. 12/10/2016 10:09:40 HEPARIN 2000 units Anesthesia, TIMBER TREATMENT PLANT OPERATOR As per physicians verbal order AM 2000 units HEPARIN given in lab by Anesthesia, TIMBER TREATMENT PLANT OPERATOR via Peripheral IV. Ordered by Viola Villarreal. Reas on: As per physicians verbal order. 12/10/2016 10:20:18 PROTAMINE 40 mg Anesthesia, TIMBER TREATMENT PLANT OPERATOR As per physicians verbal order AM 40 mg PROTAMINE given in lab by Anesthesia, TIMBER TREATMENT PLANT OPERATOR via Peripheral IV. Ordered by Viola Villarreal. Reason: As per physicians verbal order. Medication (Drip) Medication Time Given Dosage/Unit Concentration/Unit Diluent (ml) Solution HEPARIN DRIP 12/10/2016 9:20:41 AM 1000 units/hr 58584 units 250 D5W 1000 units/hr HEPARIN DRIP given in lab by Anesthesia, TIMBER TREATMENT PLANT OPERATOR via Peripheral IV. Pump/Drip Flow = 10 ml /hr using D5[place] [address] units in 250 ml. Ordered by Viola Villarreal. Reason: As per physicians verbal order. 12/10/2016 10:02:09 ISUPREL 20 mcg/min 1 mg 250 NaCl .9 AM 20 mcg/min ISUPREL given in lab by Anesthesia, TIMBER TREATMENT PLANT OPERATOR via Peripheral IV. Pump/Drip Flow = 300 ml/hr usi ng NaCl .9 with a concentration of 1 mg in 250 ml. Ordered by Viola Villarreal. Reason: As per physicians verbal order. LEVAQUIN 12/10/2016 8:25:29 AM 100 mL/hr 500 100 NaCl .9 100 mL/hr LEVAQUIN given in lab by Anesthesia, TIMBER TREATMENT PLANT OPERATOR via Peripheral IV. Pump/Drip Flow = 0 ml/hr using NaCl .9 with a concentration of 500 in 100 ml. Ordered by Viola Villarreal. Reason: As per physicians verbal order. Initial Case Assessment Cardiovascular HR Rhythm NIBP Chest Pain 75 sr 153/74 0 Edema Present Skin color Skin None Normal Warm Dry Circulatory - Right Pulses Dorsalis Pedis 3 Scale (0,1,2,3,4,d) Circulatory - Left Pulses Dorsalis Pedis 3 Scale (0,1,2,3,4,d) Circulatory - Lower Extremities Color Lower Right Color Lower Left Normal Normal Neurological State Oriented to time-place- Alert Moves all extremities person Respiration - General Respiration Rate SpO2 (%) (B/min) 20 98 Final Case Assessment Cardiovascular HR Rhythm NIBP Chest Pain 93 sr 112/60 0 Edema Present Skin color Skin None Normal Warm Dry Circulatory - Right Pulses Dorsalis Pedis 3 Scale (0,1,2,3,4,d) Circulatory - Left Pulses Dorsalis Pedis 3 Scale (0,1,2,3,4,d) Circulatory - Lower Extremities Color Lower Right Color Lower Left Normal Normal Neurological State Oriented to time-place- Lethargic Moves all extremities person Respiration - General Respiration Rate SpO2 (%) O2 (lpm) (B/min) 16 94 4 Chronological Log Time Study Chronological Log 7:41:29 Patient arrived via Bed. 7:41:39 Patient Name, D.O.B, / Armband Verified By R.N. 7:42:00 Consent signed by the physician and the patient and verified by the Coal Handling Supervisor staff. 7:42:31 Pre-op and post- op instructions given; patient acknowledges understanding of instructions. 7:42:32 Verbal Stimulation=2 Physical Stimulation=2 Airway=2 Respiration=2 TOTAL=8. (0=absent, 1=li mited, 2=present) 7:43:45 Patient has been NPO for More than 6Hrs. 7:43:46 Skin Breakdown- none per pt 7:43:47 Patient Warmer Placed on the Table. 7:43:47 Disposable Defibrillator Pads Placed On Patient. 7:43:48 Naresh Prominences Protected 7:43:50 A # 20 IV was noted in the Antecubital (left). Grade = 0 0.9ns kvo 7:43:51 A # 20 IV was noted in the Antecubital (right). Grade = 0 0.9ns kvo 7:43:52 History and physical on the chart. 7:55:38 Anesthesia at bedside. Assumes care of patient. Gabriel Assessment: Initial Case, HR=75 BPM, Rhythm=sr, EZHZ=034/74 mmhg, Chest Pain=0, Edema=None, [place] r=Normal, Skin = Warm, Dry Right Pulses: Breezy Ped=3 Left Pulses: Breezy Ped=3 7:55:40 Lower Right Extremities: Color=Normal Lower Left Extremities: Color=Normal Neurological: State=Alert, Ox3, MOHR Respiration: Resp=20 B/min, SpO2=98 % 8:00:19 Table restraints applied according to hospital policy 8:09:50 paged 8:15:20 Figure Model present for intubation. 14 fr carty inserted by MM w/o difficulty. Clear yellow urine obtained. 100 mL/hr LEVAQUIN given in lab by Anesthesia, TIMBER TREATMENT PLANT OPERATOR via Peripheral IV. Pump/Drip Flow = 0 ml/hr using NaCl .9 with 8:25:29 a concentration of 500 in 100 ml. Ordered by Viola Villarreal. Reason: As per physicians verbal ord er. 8:36:14 Pressure channel 2 zeroed. 8:36:40 Reference ECG taken Time Out. Correct patient, procedure, procedure equipment, site and side verified with physician present. Time 8:45:00 concurred by MD, individual staff and TIMBER TREATMENT PLANT OPERATOR. Time Out #2 - Consents verified, patient in correct position, all results are labled and display ed, safety precautions 8:45:23 taken, antibiotics administered. Time out concurred by MD, individual staff and TIMBER TREATMENT PLANT OPERATOR in procedur e 8:45:46 Case Start 8:45:51 GIANFRANCO in progress 8:50:27 Gianfranco complete. 8:51:02 20 mL 1% XYLOCAINE given in lab by Viola Villarreal in Left Groin via Subcutaneous. 8:51:13 Vascular access was obtained in the Fem Vein (left). 8:51:59 Vascular access was obtained in the Fem Vein (left). 8:52:00 Vascular access was obtained in the Fem Vein (left). 8:52:09 Vascular access was obtained in the Fem Art (left). A SHEATH, FR4.5 PRELUDE 11CM FR 4.5 was advanced into the Fem Art (left) using the Modified Seld estefanía technique. 8:52:25 0.9ns pressure bag connected for bp monitoring 8:54:25 A SHEATH, EPS, FR6 FAST CATH FR 6 was advanced into the Fem Vein (left) using the Modified S eldinger technique. 8:54:36 A SHEATH, EPS, FR7 FAST CATH FR 7 was advanced into the Fem Vein (left) using the Modified S eldinger technique. 8:54:41 A SHEATH, FR10 CHELLY 11CM FR 10 was advanced into the Fem Vein (left) using the Modified Se krause technique. 8:54:55 20 mL 1% XYLOCAINE given in lab by Viola Villarreal in Right Groin via Subcutaneous. 8:55:02 Vascular access was obtained in the Fem Vein (right). 8:55:04 A SHEATH, EPS, FR8 FAST CATH FR 8 was advanced into the Fem Vein (right) using the Modified Seldinger technique. A CATHETER, JSN, QUAD FR 5 was advanced vis Fem Vein (left) and placed in the CS. Placement was visually 8:56:33 confirmed under fluoroscopy. A CATHETER, JSN, QUAD FR 5 was advanced vis Fem Vein (left) and placed in the HIS. Placement was visually 8:56:43 confirmed under fluoroscopy. 8:58:00 CATHETER, ACUNAV FR10 ICE (KAZ) FR 10 Was Postioned. A SHEATH, FR8.5 STEERABLE SM 71CM 71CM was exchanged in the Fem Vein (right). This was necessary in order for 9:00:56 catheter support. 8000 units HEPARIN given in lab by Anesthesia, TIMBER TREATMENT PLANT OPERATOR via Peripheral IV. Ordered by Viola Villarreal. Reason: As per 9:01:50 physicians verbal order. 9:02:02 Drift in 9:03:22 A eps was advanced to the right atrium and passed through the septal wall to the left atrium . 9:03:33 Drift out A CATHETER, FR7 OPTIMA SPIRAL FR7 was advanced vis Fem Vein (right) and placed in the LA. Place ment was 9:04:00 visually confirmed under fluoroscopy. Mapping in progress. 9:17:24 Mapping complete. Catheter was removed A CATHETER, TACTICATH ABLAT 65 was advanced vis Fem Vein (right) and placed in the LA. Placemen t was visually 9:18:14 confirmed under fluoroscopy. 9:20:11 ACT (Normal Range 90-180) = 316 2000 units HEPARIN given in lab by Anesthesia, TIMBER TREATMENT PLANT OPERATOR via Peripheral IV. Ordered by Viola Villarreal . Reason: As per 9:20:26 physicians verbal order. 1000 units/hr HEPARIN DRIP given in lab by Anesthesia, TIMBER TREATMENT PLANT OPERATOR via Peripheral IV. Pump/Drip Flow = 10 ml/hr using 9:20:41 [place] [address] units in 250 ml. Ordered by Viola Villarreal. Reason: As per marylu fleming verbal order. 9:21:32 RF Ablation of the LT. ATRIUM with a CATHETER, TACTICATH ABLAT 65. 9:25:41 Activated Clotting Time Drawn 9:31:25 ACT (Normal Range 90-180) = 354 continuing ablation 9:37:04 9:59:37 Ablation Catheter was removed 10:00:00 Activated Clotting Time Drawn A CATHETER, FR7 OPTIMA SPIRAL FR7 was advanced vis Fem Vein (right) and placed in the LA. Place ment was 10:01:52 visually confirmed under fluoroscopy. 20 mcg/min ISUPREL given in lab by Anesthesia, TIMBER TREATMENT PLANT OPERATOR via Peripheral IV. Pump/Drip Flow = 300 ml/ hr using NaCl .9 10:02:09 with a concentration of 1 mg in 250 ml. Ordered by Viola Villarreal. Reason: As per physicians nicola bal order. 10:09:28 ACT (Normal Range 90-180) = 333 2000 units HEPARIN given in lab by Anesthesia, TIMBER TREATMENT PLANT OPERATOR via Peripheral IV. Ordered by Viola Villarreal . Reason: As per 10:09:40 physicians verbal order. 10:14:40 Isuprel off 10:17:35 PACU called. Spoke to Nia 10:17:59 Bedside Report will be given. 10:18:49 Catheter(s) removed without difficulty A SHEATH, FR9 CHELLY 11CM FR 9 was exchanged in the Fem Vein (right). This was necessary in ord er to achieve 10:19:01 vascular hemostasis. 40 mg PROTAMINE given in lab by Anesthesia, TIMBER TREATMENT PLANT OPERATOR via Peripheral IV. Ordered by Hanscy. Mildred Villarreal: As per 10:20:18 physicians verbal order. 10:22:57 Sheath(s) left in place, sutured, 0.9ns kvo and will be removed in Holding Area 10:24:24 Sterile dressing applied to sites 10:24:29 Case End 10:24:31 No case complications noted. 10:24:37 Ablation procedure performed: AFIB. 10:24:44 EP Procedure was performed. 10:25:54 Defibrillator and ground pads removed. Skin intact. 10:30:01 Activated Clotting Time Drawn 10:34:04 ACT (Normal Range 90-180) = 146 Assessment: Final Case, HR=93 BPM, Rhythm=sr, ITIY=427/60 mmhg, Chest Pain=0, Edema=None, Color =Normal, Skin = Warm, Dry Right Pulses: Breezy Ped=3 Left Pulses: Breezy Ped=3 10:37:24 Lower Right Extremities: Color=Normal Lower Left Extremities: Color=Normal Neurological: State=Lethargic, Ox3, MOHR Respiration: Resp=16 B/min, SpO2=94 %, O2=4 lpm 10:41:58 Patient moved to [facility] End Study - Contrast Media Used In Study Contrast Total Opened (mL) Total Used (mL) Total Wasted (mL) Unspecified 0 0 0 End Study - Maximum Contrast Load Max Contrast Load (mL) 506.8 End Study - Radiation Exposure Fluoro Time (minutes) 0.9 End Study - Patient Disposition Complications Transferred To Interventional Outcome No Telemetry Bed successful
[2016-12-10] MEDS ORDERED: DO NOT ADM ANY ANTICOAGULANT DRUGS PRN (10:50)
--- NOTE | 2016-12-10 10:51 | PD.CARD ---
Atrial Fibrillation Ablation PROCEDURE DATE: Dec 10, 2016 PROCEDURES PERFORMED: 1. Electrophysiology study on Isuprel infusion 2. CS cannulation 3. 3-D mapping 4. Transseptal approach 5. Right and left heart catheterization 6. Intracardiac echo 7. Radiofrequency ablation of atrial fibrillation 8. Pulmonary vein isolation 9. Posterior wall ablation 10. Mitral valve isolation 11. Mitral line creation 12. Anterior wall ablation INDICATIONS FOR THE PROCEDURE Mr. Delacruz is a 71-year-old male with atrial fibrillation, very symptomatic, on anticoagulation, referred for electrophysiology study and ablation. The risks, the nature and the benefits of the procedure were clearly stated to him. The risks include pneumothorax, cardiac perforation, stroke, need for open heart surgery and even . The patient understood and agreed to proceed. DESCRIPTION OF THE PROCEDURE IN DETAIL As written informed consent was obtained prior to esophageal echocardiogram, the patient was kept on the table where he was prepped and draped in the usual sterile fashion. Conscious sedation was initiated and maintained throughout the procedure by the anesthesiologist. Once sedation was verified, the right and left inguinal areas were anesthetized with 2% Xylocaine. Using modified Seldinger technique, the left femoral vein was cannulated on three occasions, three guidewires were advanced. Over the wire a 6, 7 and a 10-Bermudian Hemaquet were advanced. Then the left femoral artery was cannulated on one occasion, one guidewire was advanced. Over the wire a 4-Bermudian Hemaquet was advanced. Then the right femoral vein was cannulated on one occasion, one guidewire was advanced. Over the wire a 8-Bermudian Hemaquet was advanced. Then under fluoroscopic guidance through the 6 and 7-Bermudian Hemaquet, two 5-Bermudian Sakshi curved quadripolar electrophysiology catheters were advanced and placed around the His as well as coronary sinus. Basic interval was measured. The patient was in sinus rhythm. Through the 10-Bermudian Hemaquet, a Cordis Mckeon AcuNav intracardiac echo catheter was advanced and placed at the right atrium. Multiple view was obtained. There was no pericardial effusion, pulmonary vein was seen, atrial septal was visualized. Then the 8-Bermudian Hemaquet in the right femoral vein was exchanged for Agilis transseptal sheath that was placed all the way to the superior vena cava. Through the sheath a Magda needle was advanced, then the sheath, the dilator and the needle were progressed until foci engaged. Once engaged, the needle was advanced. RF was delivered for 2 seconds. I was able to cross into the left atrium. Once the needle crossed, the dilator was advanced. Once the dilator crossed, the sheath was advanced. Once the sheath crossed, the dilator and the needle were removed. At this point I did flood the system and fluid movement was seen in the left atrium the indicates the sheath is in good position. The patient already received 8,000 units of heparin. The goal is to keep an ACT around 350 during ablation. Then through the sheath a St. Pantera 20 pulse circumferential catheter was advanced. Using Vdancer endocardial solution mapping system, a two- dimensional configuration of the left atrium was obtained. Points were taken at the left superior and inferior veins, right superior and inferior veins, mitral valve, and appendages. Then through the sheath a St. Pantera TactiCath 65cm 3.5mm irrigated tipped mapping and radiofrequency ablation catheter was advanced. Esophageal probe was placed temperature monitoring during ablation. When it increased to 0.5 degrees Celsius above baseline, I moved to a different area of the atrium. First I did isolate the left superior and inferior vein. I did make a big stebbins around the veins. Posterior was ablated. Then a mitral line was isolated. Then the right superior and inferior veins were isolated. I did remap the atrium. At that point I did advance the circumferential catheter again into the vein. There was no signal into the vein, pacing from the vein showed no conduction to the atrium. Isuprel infusion was initiated at 20 mcg for over 10 minutes. No tachyarrhythmia was induced, post Isuprel no tachyarrhythmia was induced. At that point the procedure was complete. All catheters were removed , atrial septal sheath was exchanged for 9-Bermudian Hemaquet, intracardiac echo showed no pericardial effusion. There is still good flow in the pulmonary vein. The patient is going to be transferred to the recovery room. No incident report. The patient tolerated the procedure. Blood loss was minimal. FINDINGS 1. Electrocardiogram: At baseline the patient was in sinus rhythm , post procedure electrocardiogram was unchanged. 2. Basic interval: Base cycle length was around 900. Post ablation she was around [] milliseconds. AH at 140 and HV at 60 milliseconds. 3. Tachyarrhythmia: Atrial fibrillation was mapped and ablated. The ablation was successful. CONCLUSION Successful electrophysiology study, mapping, radiofrequency ablation of atrial fibrillation, pulmonary vein isolation, posterior ablation, mitral line creation. COMMENTS AND RECOMMENDATIONS The patient is going to be transferred to the telemetry unit. Will be observed and when stable can be discharged home. Viola Villarreal MD Dec 10, 2016 10:51
[2016-12-10] MEDS ORDERED: LIDOCAINE HCL 1% 50 ML VIAL INFIL PRN (11:00)
[2016-12-10] MEDS ORDERED: LORazepam 2 MG/ML VIAL IV PUSH PRN (11:00)
[2016-12-10] MEDS ORDERED: METOCLOPRAMIDE HCL 10 MG/2 ML VIAL IV PUSH PRN (11:00)
[2016-12-10] MEDS ORDERED: oxyCODONE/ACETAMINOPHEN 5 MG/325 MG TAB PO PRN ×2 (11:00)
[2016-12-10] MEDS ORDERED: ATROPINE SULFATE 1 MG/ML VIAL IV PUSH PRN (11:00)
[2016-12-10] MEDS ORDERED: SODIUM CHLOR 0.9% 250 ML INJ 250 ML IV PRN (11:00)
[2016-12-10] MEDS ORDERED: ONDANSETRON HCL 4 MG/2 ML VIAL IV PUSH PRN (11:00)
[2016-12-10] MEDS ORDERED: BACITRACIN OINT 0.9 GM PKT TOP ONE (11:00)
[2016-12-10] MEDS ORDERED: LIDOCAINE HCL 1% PF 5 ML AMPULE OTHER ONE (12:00)
[2016-12-10] MEDS ORDERED: DEXAMETHASONE SOD PHOS 4 MG/ML VIAL IV ONE (12:00)
[2016-12-10] MEDS ORDERED: PHENYLEPH/NS 1000 MCG/10 ML SYR IV ONE (12:00)
[2016-12-10] MEDS ORDERED: ROCURONIUM INJ 50 MG/5 ML SYRINGE IV PUSH ONE (12:00)
[2016-12-10] MEDS ORDERED: ePHEDrine/NS 25 MG/5 ML SYR IV ONE (12:00)
[2016-12-10] MEDS ORDERED: ONDANSETRON HCL 4 MG/2 ML VIAL IV PUSH ONE (12:00)
[2016-12-10] MEDS ORDERED: PROPOFOL 200 MG/20 ML AMP IV ONE (12:00)
--- NOTE | 2016-12-10 13:24 | EKG ---
Date Performed: 12/10/2016 Time Performed: 11:12:05 PTAGE: 71 years EKG: Sinus rhythm WITH FIRST DEGREE AV BLOCK PROLONGED QT INTERVAL ABNORMAL ECG PREVIOUS TRACING : 10/09/2016 09.05 Compared to prior tracing no significant change DOCTOR: Arias Proctor Interpretating Date/Time 12/10/2016 13:23:21
[2016-12-10] MEDS ORDERED: *morphine SULFATE 8 MG/ML PERIprocedure ONLY ONE (15:04)
--- NOTE | 2016-12-10 16:29 | EKG ---
Date Performed: 12/10/2016 Time Performed: 07:07:08 PTAGE: 71 years EKG: Sinus rhythm with 1st degree A-V block. rSr'(V1) - probable normal variant Abnormal ECG PREVIOUS TRACING : 10/09/2016 09.05 Compared to prior tracing no significant change DOCTOR: Spencer Gerber Interpretating Date/Time 12/10/2016 16:28:31
[2016-12-10] MEDS: metFORMIN HCL 500 MG TAB PO SCH (18:25)
[2016-12-10] MEDS: APIXABAN 5 MG TABLET PO SCH (20:37)
[2016-12-10] MEDS ORDERED: TAMSULOSIN HCL 0.4 MG CAP PO SCH (21:00)
[2016-12-11] VITALS (11 sets, daily range): BP systolic 139–142; BP diastolic 74; PULSE 76–93; RESP 16; TEMP 97.9–98.5; O2SAT 93–95
[2016-12-11] MEDS ORDERED: LEVOTHYROXINE SODIUM 75 MCG TAB PO SCH (06:00)
[2016-12-11 06:32] LABS: APTT (PATIENT) 26.6 SEC (24.3-30.1); PROTHROMBIN TIME - PATIENT 11.2 SEC (9.8-11.6)
--- NOTE | 2016-12-11 08:22 | PD.CARD.PN ---
Subjective Subjective Remarks Feels okay Objective Medications Current Medications Medications (Trade) Dose Ordered Sig/Alfonzo Route Start Time Stop Time Status Last Admin (Lopressor) 25 mg RADIOCOMMUNICATIONS TECHNICIAN PRN PO 12/10/16 06:45 12/13/16 06:44 (Betadine 5% Antisepsis Kit) 1 applic RADIOCOMMUNICATIONS TECHNICIAN PRN EACH NARE 12/10/16 06:45 12/13/16 06:44 (Chlorhexidine 2% Cloth) 3 pack RADIOCOMMUNICATIONS TECHNICIAN PRN TOPICAL 12/10/16 06:45 12/13/16 06:44 (NovoLIN R INJ) See Protocol Table ... RADIOCOMMUNICATIONS TECHNICIAN PRN SQ 12/10/16 06:45 12/13/16 06:44 (Ativan) 1 mg RADIOCOMMUNICATIONS TECHNICIAN SL 12/10/16 06:45 12/13/16 06:44 (Percocet 5-325 Mg) 1 tab Q4H PRN PO 12/10/16 11:00 (Percocet 5-325 Mg) 2 tab Q4H PRN PO 12/10/16 11:00 (Ativan Inj) 0.5 mg UNSCH PRN IV PUSH 12/10/16 11:00 12/11/16 10:59 (Atropine Inj) 0.5 mg UNSCH PRN IV PUSH 12/10/16 11:00 Sodium Chloride 250 ml @ 500 mls/hr ONCE PRN IV 12/10/16 11:00 12/11/16 10:59 (Reglan Inj) 10 mg Q4H PRN IV PUSH 12/10/16 11:00 (Zofran Inj) 4 mg Q4H PRN IV PUSH 12/10/16 11:00 (Xylocaine 1% Inj (50 ml)) 10 ml UNSCH PRN INFIL 12/10/16 11:00 12/11/16 10:59 (Cordarone) 200 mg DAILY PO 12/11/16 09:00 (Norvasc) 5 mg DAILY PO 12/11/16 09:00 (Eliquis) 5 mg BID PO 12/10/16 21:00 12/10/16 20:37 (Synthroid) 75 mcg DAILY@0600 PO 12/11/16 06:00 12/11/16 05:20 (Glucophage) 1,000 mg BIDPC PO 12/10/16 18:00 12/10/16 18:25 (Flomax) 0.8 mg HS PO 12/10/16 21:00 12/10/16 20:37 (Prinivil) 40 mg DAILY PO 12/11/16 09:00 (Pepcid) 20 mg BID PO 12/11/16 09:00 (Pravachol) 40 mg DAILY PO 12/11/16 09:00 Miscellaneous Information ALL NURSING DEPARTME... UNSCH PRN .XX 12/10/16 10:50 12/11/16 10:49 Vital Signs / I&O Vital Signs Date Time Temp Pulse Resp B/P (MAP) Pulse Ox O2 Delivery O2 Flow Rate FiO2 12/11/16 08:14 78 12/11/16 08:01 98.5 78 16 139/74 (95) 95 12/11/16 07:53 78 12/11/16 06:13 78 12/11/16 05:00 78 12/11/16 04:31 97.9 93 142/74 (96) 93 12/11/16 04:00 76 12/11/16 03:00 77 12/11/16 02:00 78 12/11/16 01:00 80 12/11/16 00:00 82 12/10/16 23:00 97.9 84 148/78 (101) 93 12/10/16 23:00 82 12/10/16 22:00 82 12/10/16 21:00 82 12/10/16 20:00 82 12/10/16 20:00 98.0 86 139/73 (95) 94 12/10/16 19:00 92 12/10/16 16:07 97.8 87 16 144/84 (104) 97 12/10/16 14:00 85 17 125/69 (87) 97 Nasal Cannula 3 12/10/16 13:00 83 18 126/58 (80) 96 Nasal Cannula 3 12/10/16 12:30 84 19 141/70 (93) 96 Nasal Cannula 3 12/10/16 12:00 97.0 82 15 129/71 (90) 95 Nasal Cannula 3 12/10/16 11:45 80 19 124/71 (88) 95 Nasal Cannula 3 12/10/16 11:30 80 24 129/68 (88) 97 Nasal Cannula 3 12/10/16 11:15 82 20 134/71 (92) 97 Nasal Cannula 3 12/10/16 11:00 84 13 125/69 (87) 97 Nasal Cannula 3 12/10/16 10:49 98.5 87 14 133/66 (88) 95 Nasal Cannula 3 I/O 12/10/16 12/10/16 12/10/16 12/11/16 12/11/16 12/11/16 07:00 15:00 23:00 07:00 15:00 23:00 Intake Total 1000 ml 720 ml 480 ml Output Total 100 ml 600 ml 725 ml Balance 900 ml 120 ml -245 ml Intake Oral 720 ml 480 ml Other 1000 ml Output Urine Total 100 ml 600 ml 725 ml Physical Exam GENERAL: Well-nourished, well-developed patient. SKIN: Warm and dry. Groin site soft with no bleeding or bruising. HEAD: Normocephalic. EYES: No scleral icterus. No injection or drainage. NECK: Supple, trachea midline. No JVD or lymphadenopathy. CARDIOVASCULAR: Regular rate and rhythm without murmurs, gallops, or rubs. RESPIRATORY: Breath sounds equal bilaterally. No accessory muscle use. GASTROINTESTINAL: Abdomen soft, non-tender, nondistended. EXTREMITIES: No cyanosis, or edema. NEUROLOGICAL: Awake, alert, and oriented x 3. Non-focal. Laboratory Laboratory Tests Test 12/11/16 05:50 Prothrombin Time 11.2 SEC Prothromb Time International Ratio 1.0 RATIO Activated Partial Thromboplast Time 26.6 SEC Assessment and Plan Problem List: (1) Atrial fibrillation ICD Codes: I48.91 - Unspecified atrial fibrillation Plan: Continue eliquis. Stable for discharge home. (2) S/P ablation of atrial fibrillation ICD Codes: Z98.890 - Other specified postprocedural states; Z86.79 - Personal history of other diseases of the circulatory system Plan: Normal sinus rhythm, continue eliquis, discharge home, follow-up with Dr. Villarreal in 3 weeks per my discussion with him. Karla Hart Dec 11, 2016 08:22
[2016-12-11] MEDS ORDERED: amLODIPine BESYLATE 5 MG TAB PO SCH (09:00)
[2016-12-11] MEDS ORDERED: FAMOTIDINE 20 MG TAB PO SCH (09:00)
[2016-12-11] MEDS ORDERED: AMIODARONE 200 MG TAB PO SCH (09:00)
[2016-12-11] MEDS ORDERED: LISINOPRIL 20 MG TAB PO SCH (09:00)
[2016-12-11] MEDS ORDERED: PRAVASTATIN SOD 40 MG TAB PO SCH (09:00)
[2016-12-11] MEDS: APIXABAN 5 MG TABLET PO SCH (09:26)
[2016-12-11] MEDS: metFORMIN HCL 500 MG TAB PO SCH (09:27)
--- NOTE | 2016-12-11 14:55 | EKG ---
Date Performed: 12/11/2016 Time Performed: 05:50:24 PTAGE: 71 years EKG: Sinus rhythm with 1st degree A-V block Abnormal ECG PREVIOUS TRACING : 12/10/2016 11.12 Compared to the previous tracing, QTc is no longer prolonge d DOCTOR: Spencer Gerber Interpretating Date/Time 12/11/2016 14:54:22
== END 2016-12-11 10:27 | disposition home or self-care (01) ==
LOC: HDIC 06:13 → HDOC 06:13 → HCIN 16:17 → HDOC 12-11 10:27
PROVIDERS: ATTEND Internal Medicine Interventional Cardiology
DX: I48.91 Unspecified atrial fibrillation (principal); I47.1 Supraventricular tachycardia; R55 Syncope and collapse; E11.9 Type 2 diabetes mellitus without complications; I10 Essential (primary) hypertension; E78.5 Hyperlipidemia, unspecified
CPT/HCPCS: 80048; 82948; 85002; 85025; 85610; 85730; 86850; 86900; 86901; 93005; 93613; 93623; 93656; 93662; C1730; C1731; C1732; C1759; C1766; C2630; J1100; J1644; J1956; J2270; J2370; J2405; J2720; J3010

== ENCOUNTER 2017-05-22 07:13 | Observation (INO) | payer MEDICARE ==
[~2017-05-22] VITALS: Ht 180.3 cm; Wt 87.0 kg
[~2017-05-22 07:13] MED LIST changes: +APIX5TAB PO; -AUGM875T3 PO; +METO25TA3 PO; -PRED10 PO; -TRAM50TA PO
[2017-05-22] MEDS: LACTATED RINGER'S 1000 ML IV PRN ×2 (07:55→22:20)
[2017-05-22] MEDS ORDERED: INSULIN HUMAN REGULAR 1,000 UNITS/10 ML VIAL SQ PRN (08:00)
[2017-05-22] MEDS ORDERED: POVIDONE IODINE 5% (ANTISEPSIS KIT) 4 APPLICATIONS EACH NARE PRN (08:00)
[2017-05-22] MEDS ORDERED: SODIUM CHLORID 0.9% 500 ML IV PRN (08:00)
[2017-05-22] MEDS ORDERED: METOPROLOL TARTRATE 25 MG TAB PO PRN ×2 (08:00→13:00)
[2017-05-22] MEDS ORDERED: CHLORHEXIDINE GLUCONATE 2 % 1 PACK (2 CLOTHS) TOPICAL PRN (08:00)
[2017-05-22] MEDS ORDERED: ceFAZolin 1,000 MG/NS 100 ML IV SCH ×2 (08:00)
[2017-05-22 08:32] LABS: AUTOMATED NEUTROPHIL # 3.9 TH/MM3 (1.8-7.7); BASOPHIL % 0.7 % (0.0-2.0); EOSINOPHIL # 0.1 TH/MM3 (0-0.4); HEMATOCRIT 36.6 % (39.0-51.0); HEMOGLOBIN 12.5 GM/DL (13.0-17.0); LYMPH % 23.6 % (9.0-44.0); LYMPHOCYTE # 1.3 TH/MM3 (1.0-4.8); MEAN CELL VOLUME 82.1 FL (80.0-100.0); MEAN PLATELET VOLUME 8.3 FL (7.0-11.0); MONO % 5.6 % (0.0-8.0); MONOCYTE # 0.3 TH/MM3 (0-0.9); NEUT % 68.1 % (16.0-70.0); PLATELET COUNT 212 TH/MM3 (150-450); RED BLOOD COUNT 4.46 MIL/MM3 (4.50-5.90); RED CELL DISTRIBUTION WIDTH 15.8 % (11.6-17.2); WHITE BLOOD COUNT 5.7 TH/MM3 (4.0-11.0)
[2017-05-22] MEDS ORDERED: ACETAMINOPHEN 1000 MG/100 ML 100 ML IV ONE (09:27)
--- NOTE | 2017-05-22 11:09 | PD.OP ---
Operative Report Date of Surgery: May 22, 2017 Preoperative Diagnosis: BPH with obstruction Postoperative Diagnosis: Same Procedure: Cystoscopy with transurethral resection of the prostate Anesthesia: General endotracheal tube Surgeon: Zackery Stover Helpdesk Analyst(s): None Resident Surgeon: None Operation and Findings: 71 year-old male who had worsening symptoms of BPH with obstruction who has failed medication elected to undergo transurethral resection of the prostate. Cystoscopy in the office demonstrated bilobular prosthetic obstruction with large lateral median lobe identified. Risk and benefits were discussed preoperatively and he was willing to proceed. Patient was brought to the operating room identified by myself as Marcus Delacruz. He was placed in dorsal lithotomy position, prepped and draped in usual sterile fashion, received preprocedure antibiotics and general endotracheal tube anesthesia was administered. The 26F sheath with the [employer] resectoscope with a 24 loop was passed into the bladder. A large median lobe was identified as well as a large lateral lobe. The verumontanum was also identified. Resection of the median lobe began at the 6 o'clock position and circumferentially the adenoma of the prostate was resected. Care was taken to avoid both ureteral orifices and these were identified throughout the in entire length of the case. Once the prostatic urethra was cleared and all chips were evacuated using the helical evacuator, the cautery aspect of the loop was then used to provide hemostasis of any bleeding. Once hemostasis was obtained. The helical evacuator was then used again to remove any remaining prostatic chips. A 22 Japanese 3-way catheter was inserted at the end of the procedure and he was awoken and extubated and transferred to her room stable condition. He tolerated the procedure well. Blood loss was approximately 50 cc. Zackery Stover DO May 22, 2017 11:09
[2017-05-22] MEDS: LACTATED RINGER'S 1000 ML INJ 1,000 ML IV SCH ×2 (11:40→22:30)
[2017-05-22] MEDS ORDERED: PHENYLEPH/NS 1000 MCG/10 ML SYR IV ONE (12:00)
[2017-05-22] MEDS ORDERED: LIDOCAINE HCL 1% PF 5 ML SYRINGE OTHER ONE (12:00)
[2017-05-22] MEDS ORDERED: ROCURONIUM INJ 50 MG/5 ML SYRINGE IV PUSH ONE (12:00)
[2017-05-22] MEDS ORDERED: DEXAMETHASONE SOD PHOS 4 MG/ML VIAL IV ONE (12:00)
[2017-05-22] MEDS ORDERED: NEOSTIGMINE 5 MG/5 ML SYRINGE IV PUSH ONE (12:00)
[2017-05-22] MEDS ORDERED: PROPOFOL 200 MG/20 ML AMP IV ONE (12:00)
[2017-05-22] MEDS ORDERED: ONDANSETRON HCL 4 MG/2 ML VIAL IV ONE (12:00)
[2017-05-22] MEDS ORDERED: GLYCOPYRROLATE 0.6 MG/3 ML SYRINGE IV PUSH ONE (12:00)
[2017-05-22] MEDS ORDERED: DO NOT ADM ANY ANTICOAGULANT DRUGS PRN (12:15)
[2017-05-22 12:26] LABS: HEMATOCRIT 33.6 % (39.0-51.0); HEMOGLOBIN 11.5 GM/DL (13.0-17.0); MEAN CELL VOLUME 82.5 FL (80.0-100.0); MEAN CORPUSCULAR HEMOGLOBIN 28.1 PG (27.0-34.0); MEAN CORPUSCULAR HGB CONC 34.1 % (32.0-36.0); MEAN PLATELET VOLUME 7.9 FL (7.0-11.0); PLATELET COUNT 197 TH/MM3 (150-450); RED BLOOD COUNT 4.08 MIL/MM3 (4.50-5.90); RED CELL DISTRIBUTION WIDTH 15.9 % (11.6-17.2); WHITE BLOOD COUNT 5.5 TH/MM3 (4.0-11.0)
[2017-05-22 12:46] LABS: BICARBONATE 28.9 MEQ/L (21.0-32.0); CREATININE 1.16 MG/DL (0.60-1.30)
[2017-05-22] MEDS ORDERED: INSULIN HUMAN REGULAR 1,000 UNITS/10 ML VIAL SQ ONE (13:00)
[2017-05-22] MEDS: metFORMIN HCL 500 MG TAB PO SCH ×2 (13:00→17:18)
[2017-05-22] MEDS ORDERED: PANTOPRAZOLE SODIUM 40 MG VIAL IV PUSH SCH (13:00)
[2017-05-22] MEDS ORDERED: BELLADONNA ALKALOIDS/OPIUM 60 MG SUPP RECTAL PRN (13:00)
[2017-05-22] MEDS ORDERED: oxyCODONE/ACETAMINOPHEN 5 MG/325 MG TAB PO PRN (13:15)
[2017-05-22] MEDS ORDERED: MORPHINE SULFATE 2 MG/ML INJ IM PRN (13:15)
[2017-05-22] MEDS ORDERED: SODIUM CHLORIDE 0.9% IRRIGATION SCH (14:00)
[2017-05-22] MEDS ORDERED: IRR IRRIGATION SCH (14:00)
[2017-05-22 15:00] VITALS: BP 154/81; PULSE 78; RESP 18; TEMP 96.1; O2SAT 96
[2017-05-22 20:35] VITALS: BP 155/86; PULSE 62; RESP 17; TEMP 96.9; O2SAT 95
[2017-05-23 00:10] VITALS: BP 148/79; PULSE 72; RESP 17; TEMP 96.8; O2SAT 95
[2017-05-23 04:55] VITALS: BP 130/57; PULSE 68; RESP 16; TEMP 96.5; O2SAT 96
[2017-05-23] MEDS ORDERED: LEVOTHYROXINE SODIUM 75 MCG TAB PO SCH (06:00)
[2017-05-23 08:00] VITALS: BP 156/80; PULSE 76; RESP 18; TEMP 96.7; O2SAT 95
[2017-05-23] MEDS ORDERED: amLODIPine BESYLATE 5 MG TAB PO SCH (09:00)
[2017-05-23] MEDS ORDERED: LISINOPRIL 20 MG TAB PO SCH (09:00)
[2017-05-23] MEDS ORDERED: AMIODARONE 200 MG TAB PO SCH (09:00)
[2017-05-23] MEDS: metFORMIN HCL 500 MG TAB PO SCH (09:05)
[2017-05-23] MEDS: LACTATED RINGER'S 1000 ML INJ 1,000 ML IV SCH (09:11)
[2017-05-23 12:00] VITALS: BP 172/83; PULSE 77; RESP 18; TEMP 98.2; O2SAT 94
--- NOTE | 2017-05-23 14:06 | MD ---
cc: Zackery Stover DO DATE OF DISCHARGE: 05/23/2017 HOSPITAL COURSE: Mr. Delacruz is a pleasant 71-year-old male who has BPH with obstruction who was failing medication, underwent transurethral resection of his prostate on 05/22/2017. His surgery was uneventful and he tolerated the procedure well. On hospital day 1, he was feeling well. His CBI was stopped and his urine remained clear. He was tolerating his regular diet. DISCHARGE INSTRUCTIONS: At the time of discharge he was given instructions including diet, exercise, medications and scheduled to followup in the office on Friday for a void trial. DO NICOLETTE Helm/ANDREA , 12:40 PM , 02:04 PM
== END 2017-05-23 15:00 | disposition home or self-care (01) ==
LOC: HSDC 07:13 → HSDI 11:21 → N06A 14:35
PROVIDERS: ADMIT Urology; ATTEND Urology
DX: N40.1 Benign prostatic hyperplasia with lower urinary tract symptoms (principal); N13.8 Other obstructive and reflux uropathy; R35.1 Nocturia; I48.91 Unspecified atrial fibrillation; I10 Essential (primary) hypertension; E11.9 Type 2 diabetes mellitus without complications; Z79.84 Long term (current) use of oral hypoglycemic drugs; Z79.01 Long term (current) use of anticoagulants; Z87.891 Personal history of nicotine dependence
CPT/HCPCS: 00914; 52648; 80048; 82948; 85025; 85027; 88305; 94150; C9113; G0378; J0131; J0690; J1100; J2370; J2405; J2710; J3010; J7120